=== PATIENT | female | born 1985 | race Caucasian/White ===

== ENCOUNTER → 2017-04-04 | Outpatient (CLI) | payer MEDICAID ==
--- NOTE | 2017-04-04 14:04 | Diagnostic Imaging Report ---
First trimester OB ultrasound. INDICATION: Feeding. FINDINGS: There is a normal-appearing single intrauterine . An embryo is seen with cardiac activity at 122 beats per minute. The crown-rump length is at 6 weeks and 6 days. CATHRYN is 11/22/17. IMPRESSION: Live single intrauterine . Dictated by: Dictated on workstation # [id number]
== END ==
LOC: RAD 13:19
PROVIDERS: ATTEND Family Medicine
DX: O20.9 Hemorrhage in early pregnancy, unspecified; Z3A.01 Less than 8 weeks gestation of pregnancy
CPT/HCPCS: 76801

== ENCOUNTER 2018-05-16 07:53 | Emergency (ER) | payer MEDICAID ==
[~2018-05-16] VITALS: Ht 172.7 cm; Wt 61.2 kg
--- OUTSIDE RECORDS SUMMARY | 2018-05-16 07:57 | XMS REPORT ---
Author Author JACQUELYN FIORE [facility] Address [address] [place] [address] Care Team Providers Care Woods Superintendent Name Role Phone JACQUELYN FIORE Unavailable PROBLEMS Type Condition ICD9-CM Code [id number] Code Onset Dates Condition Status SNOMED Code Problem Cannabis dependence in early, early partial, sustained full, or sustained partial remission F12.21 Active 074344093 Problem PUD (peptic ulcer disease) K27.9 Active 37079184 Problem Gastroesophageal reflux disease with esophagitis K21.0 Active 586229396 Problem GERD with esophagitis K21.0 Active 923110154 ALLERGIES No Information ENCOUNTERS Encounter Location Date Diagnosis [facility] [address] [place] [address] May, [facility] [address] [place] [address] May, [facility] [address] [place] [address] Apr, [facility] [address] [place] [address] Apr, Cannabis dependence in early, early partial, sustained full, or sustained partial remission F12.21 [facility] [address] [place] [address] Apr, Cannabis dependence in early, early partial, sustained full, or sustained partial remission F12.21 [facility] [address] [address] Apr, [facility] [address] [place] [address] Apr, [facility] [address] [address] Apr, [facility] [address] [place] [id number] [address] Oct, [facility] [id number], [place] [address] 02 Oct, 2017 Visit for dental examination Z01.20 [facility] [address] [address] Mar, 7 weeks gestation of Z3A.01 and Bleeding in early O20.9 [facility] [id number] [address] 10 Oct, 2016 PUD (peptic ulcer disease) K27.9 and Gastroesophageal reflux disease with esophagitis K21.0 [facility] [id number] [address] Sep, [facility] [id number], [place] [address] Sep, GERD with esophagitis K21.0 IMMUNIZATIONS No Known Immunizations SOCIAL HISTORY Never Assessed REASON FOR VISIT [facility] PLAN OF CARE Activity Details Follow Up 2 - 3 Days Reason: VITAL SIGNS MEDICATIONS Unknown Medications RESULTS No Results PROCEDURES Procedure Date Ordered Result Body Site Alcohol and/or drug services May 07, 2018 INSTRUCTIONS MEDICATIONS ADMINISTERED No Known Medications MEDICAL (GENERAL) HISTORY Type Description Date Surgical History colonoscopy Surgical History tonsillectomy Surgical History section x2 Surgical History Cervical biopsy 2018 Hospitalization History Surgery(s)/Childbirth(s) only
--- OUTSIDE RECORDS SUMMARY | 2018-05-16 07:57 | XMS REPORT ---
Author Author BELINDA RIVAS [facility] Address [address] [place] [address] Care Team Providers Care Register In Chancery Name Role Phone BELINDA RIVAS Unavailable PROBLEMS Type Condition ICD9-CM Code UIC95-GD Code Onset Dates Condition Status SNOMED Code Problem Gastroesophageal reflux disease with esophagitis K21.0 Active 979494613 Problem PUD (peptic ulcer disease) K27.9 Active 65731447 Problem GERD with esophagitis K21.0 Active 971375219 ALLERGIES No Information SOCIAL HISTORY Never Assessed PLAN OF CARE VITAL SIGNS MEDICATIONS Medication Instructions Dosage Frequency Start Date End Date Duration Status Sucralfate 1 GM Orally 4 times a day 1 tablet 6h 30 days Active RESULTS No Results PROCEDURES No Known procedures IMMUNIZATIONS No Known Immunizations MEDICAL (GENERAL) HISTORY Type Description Date Surgical History colonoscopy Surgical History tonsillectomy Surgical History section x2 Hospitalization History Surgery(s)/Childbirth(s) only
--- OUTSIDE RECORDS SUMMARY | 2018-05-16 07:57 | XMS REPORT ---
Author Author JACQUELYN FIORE [facility] Address [address] [place] [address] Care Team Providers Care Power Cleaner Operator Name Role Phone JACQUELYN FIORE Unavailable PROBLEMS Type Condition ICD9-CM Code QAH66-HL Code Onset Dates Condition Status SNOMED Code Problem Cannabis dependence in early, early partial, sustained full, or sustained partial remission F12.21 Active 451051060 Problem PUD (peptic ulcer disease) K27.9 Active 96235616 Problem Gastroesophageal reflux disease with esophagitis K21.0 Active 205454451 Problem GERD with esophagitis K21.0 Active 223901557 ALLERGIES No Information ENCOUNTERS Encounter Location Date Diagnosis [facility] [address] [place] [address] May, [facility] [address] [place] [address] May, [facility] [address] [place] [address] Apr, [facility] [address] [place] [address] Apr, Cannabis dependence in early, early partial, sustained full, or sustained partial remission F12.21 [facility] [address] [place] [address] Apr, Cannabis dependence in early, early partial, sustained full, or sustained partial remission F12.21 [facility] [address] [address] Apr, [facility] [address] [place] [address] Apr, [facility] [address]65100[place], [place] [address] Apr, [facility] [address] [place], [id number] [place] [address] Oct, [facility] [id number] [place] [address] 02 Oct, 2017 Visit for dental examination Z01.20 [facility] [address], [place] [address] Mar, 7 weeks gestation of Z3A.01 and Bleeding in early O20.9 [facility] [id number] [place] [address] 10 Oct, 2016 PUD (peptic ulcer disease) K27.9 and Gastroesophageal reflux disease with esophagitis K21.0 [facility] [id number] [place] [address] Sep, [facility] [id number] [place] [address] Sep, GERD with esophagitis K21.0 IMMUNIZATIONS No Known Immunizations SOCIAL HISTORY Never Assessed REASON FOR VISIT SUBAB f/u PLAN OF CARE Activity Details Follow Up 1 Week Reason: VITAL SIGNS MEDICATIONS Unknown Medications RESULTS No Results PROCEDURES Procedure Date Ordered Result Body Site Alcohol and/or drug services May 09, 2018 INSTRUCTIONS MEDICATIONS ADMINISTERED No Known Medications MEDICAL (GENERAL) HISTORY Type Description Date Surgical History colonoscopy Surgical History tonsillectomy Surgical History section x2 Surgical History Cervical biopsy 2018 Hospitalization History Surgery(s)/Childbirth(s) only
--- OUTSIDE RECORDS SUMMARY | 2018-05-16 07:57 | XMS REPORT ---
Author Author RHONDA GONZALES [facility] Address [address] [place] [address] Care Team Providers Care Geospatial Imagery Intelligence Analyst Name Role Phone JANET RHONDA Unavailable PROBLEMS Type Condition ICD9-CM Code RAD66-OB Code Onset Dates Condition Status SNOMED Code Problem Cannabis dependence in early, early partial, sustained full, or sustained partial remission F12.21 Active 493996046 Problem PUD (peptic ulcer disease) K27.9 Active 73857105 Problem Gastroesophageal reflux disease with esophagitis K21.0 Active 049736972 Problem GERD with esophagitis K21.0 Active 102101109 ALLERGIES No Information ENCOUNTERS Encounter Location Date Diagnosis [facility] [address] [place] [address] May, [facility] [address] [place] [address] May, [facility] [address] [place] [address] Apr, [facility] [address] [place] [address] Apr, Cannabis dependence in early, early partial, sustained full, or sustained partial remission F12.21 [facility] [address] [place] [address] Apr, Cannabis dependence in early, early partial, sustained full, or sustained partial remission F12.21 [facility] [address], [place] [address] Apr, [facility] [address] [place] [address] Apr, [facility] [address]100[place] [address] Apr, [facility] [address] [id number] [address] Oct, [facility] [address] [id number] [address] 02 Oct, 2017 Visit for dental examination Z01.20 [facility] [address] [id number] [address] Mar, 7 weeks gestation of Z3A.01 and Bleeding in early O20.9 [facility] [id number], [place] [address] 10 Oct, 2016 PUD (peptic ulcer disease) K27.9 and Gastroesophageal reflux disease with esophagitis K21.0 [facility] [id number], [place] [address] Sep, [facility] [id number], [place] [address] Sep, GERD with esophagitis K21.0 IMMUNIZATIONS No Known Immunizations SOCIAL HISTORY Never Assessed REASON FOR VISIT medication question PLAN OF CARE VITAL SIGNS MEDICATIONS Unknown Medications RESULTS No Results PROCEDURES No Known procedures INSTRUCTIONS MEDICATIONS ADMINISTERED No Known Medications MEDICAL (GENERAL) HISTORY Type Description Date Surgical History colonoscopy Surgical History tonsillectomy Surgical History section x2 Surgical History Cervical biopsy 2018 Hospitalization History Surgery(s)/Childbirth(s) only
--- OUTSIDE RECORDS SUMMARY | 2018-05-16 07:57 | XMS REPORT ---
Author Author RHONDA GONZALES [facility] Address [address] [place] [address] Care Team Providers Care Instrument Shop Supervisor Name Role Phone JANET RHONDA Unavailable PROBLEMS Type Condition ICD9-CM Code FIF67-OI Code Onset Dates Condition Status SNOMED Code Problem Cannabis dependence in early, early partial, sustained full, or sustained partial remission F12.21 Active 393334890 Problem PUD (peptic ulcer disease) K27.9 Active 53306439 Problem Gastroesophageal reflux disease with esophagitis K21.0 Active 837477929 Problem GERD with esophagitis K21.0 Active 185733845 ALLERGIES No Information ENCOUNTERS Encounter Location Date Diagnosis [facility] [address] [place] [address] May, [facility] [address] [place] [address] May, [facility] [address] [place] [address] Apr, [facility] [address] [place] [address] Apr, Cannabis dependence in early, early partial, sustained full, or sustained partial remission F12.21 [facility] [address] [place] [address] Apr, Cannabis dependence in early, early partial, sustained full, or sustained partial remission F12.21 [facility] [address] [address] Apr, [facility] [address] [place] [address] Apr, [facility] [address] [address] Apr, [facility] [address] [id number], [place] [address] Oct, [facility] [address] [id number], [place] [address] 02 Oct, 2017 Visit for dental examination Z01.20 [facility] [address] [id number] [address] Mar, 7 weeks gestation of Z3A.01 and Bleeding in early O20.9 [facility] [id number], [place] [address] 10 Oct, 2016 PUD (peptic ulcer disease) K27.9 and Gastroesophageal reflux disease with esophagitis K21.0 [facility] [id number], [place] [address] Sep, [facility] [id number], [place] [address] Sep, GERD with esophagitis K21.0 IMMUNIZATIONS No Known Immunizations SOCIAL HISTORY Never Assessed REASON FOR VISIT Colposcopy PLAN OF CARE VITAL SIGNS MEDICATIONS Unknown Medications RESULTS No Results PROCEDURES No Known procedures INSTRUCTIONS MEDICATIONS ADMINISTERED No Known Medications MEDICAL (GENERAL) HISTORY Type Description Date Surgical History colonoscopy Surgical History tonsillectomy Surgical History section x2 Surgical History Cervical biopsy 2018 Hospitalization History Surgery(s)/Childbirth(s) only
--- OUTSIDE RECORDS SUMMARY | 2018-05-16 07:57 | XMS REPORT ---
Author Author JENELLE ORTEZ Organization [facility] Address Unknown Phone Unavailable Care Team Providers Care Sausage Wrapper Name Role Phone JENELLE ORTEZ Unavailable Unavailable PROBLEMS Type Condition ICD9-CM Code AEB26-XW Code Onset Dates Condition Status SNOMED Code Problem Gastroesophageal reflux disease with esophagitis K21.0 Active 093404625 Problem PUD (peptic ulcer disease) K27.9 Active 06839253 Problem GERD with esophagitis K21.0 Active 929123378 ALLERGIES Substance Reaction Event Type Date Status Doxycycline Hyclate nausea and vomiting Drug Allergy Oct, Active ENCOUNTERS Encounter Location Date Diagnosis [facility] [address] [place] [address] Oct, [facility] [address] [place] [address] Oct, Visit for dental examination Z01.20 [facility] [address] [address] Mar, 7 weeks gestation of Z3A.01 and Bleeding in early O20.9 [facility] [address] [place] [id number] [place] [address] Oct, PUD (peptic ulcer disease) K27.9 and Gastroesophageal reflux disease with esophagitis K21.0 [facility] [address] [place], [place] [id number] [place] [address] Sep, [facility] [address] [place] [address] Sep, GERD with esophagitis K21.0 IMMUNIZATIONS No Known Immunizations SOCIAL HISTORY Never Assessed REASON FOR VISIT LU[facility] E PLAN OF CARE Activity Details Follow Up Full mouth TE 1 hr. Reason: VITAL SIGNS Blood pressure systolic 112 mmHg 2017-10-14 Blood pressure diastolic 76 mmHg 2017-10-14 MEDICATIONS Medication Instructions Dosage Frequency Start Date End Date Duration Status Vitamin 27-0.8 MG Not-Taking Plus 27-1 MG Orally Once a day as directed 24h Mar, Active [place] Active Sucralfate 1 GM Orally 4 times a day 1 tablet 6h 30 days Not-Taking RESULTS No Results PROCEDURES Procedure Date Ordered Result Body Site COMP ORAL EVALUATION - NEW/EST PT October 14, 2017 INTRAORL - CMPL SERIES CODE 25730 October 14, 2017 INSTRUCTIONS MEDICATIONS ADMINISTERED No Known Medications MEDICAL (GENERAL) HISTORY Type Description Date Surgical History colonoscopy Surgical History tonsillectomy Surgical History section x2 Surgical History Cervical biopsy 2018 Hospitalization History Surgery(s)/Childbirth(s) only
--- OUTSIDE RECORDS SUMMARY | 2018-05-16 07:57 | XMS REPORT | Continuity of Care Document ---
Author Author [facility] Organization [facility] Address [facility] [address] [place] [address] Phone Unavailable Support Name Relationship Address Phone Bishnu Molina M.D. Caregiver [address] [place] [address] JOHN RAJANSS Next Of Kin [address] [place] [address] Insurance Providers Payer Name Policy Number Subscriber Name Relationship [facility] [id number] Kenisha Santiago 20 Self / Same As Patient Advance Directives Directive Response Recorded Date/Time Do you have an Advanced Directive? No 05/06/00 8:18pm Advance Directives No 11/26/14 11:30am Living Will No 11/26/14 11:30am Health Care Proxy No 11/26/14 11:30am Power of Fare Enforcement Officer for Health Care No 11/26/14 11:30am Organ, Tissue, or Eye Donor No 11/26/14 11:30am Do you have a signed organ donor card? No 05/06/00 8:18pm Problems No known problems or medical conditions. Medications Medication Dose Route Sig Days/Qty Instructions Order Date Discontinued Date Status Propoxyphene/Acetaminophen 1 Tab PO 3-4 TIMES DAILY NEEDED 20 Qty 03/28/12 Discontinued Vit#96/Ferrous Fum/Fa* 1 Each PO DAILY 03/28/12 12/01/13 Discontinued Benzocaine/Menthol 82.5 Ml TP NEEDED 03/30/12 05/28/13 Discontinued Acetaminophen/Hydrocodone Bitart 1 Tab PO EVERY 6 HRS NEEDED FOR PAIN 16 Qty 03/30/12 05/28/13 Discontinued Lanolin 454 Gm TP NEEDED 03/30/12 05/28/13 Discontinued Acetaminophen/Hydrocodone Bitart 1 Ea PO EVERY 6 HRS NEEDED FOR PAIN 20 Qty 05/31/13 12/01/13 Discontinued Lanolin 56 Gm TP 05/31/13 12/01/13 Discontinued Acetaminophen/Aspirin/Caffeine 1 Each PO PRN HEADACHE 12/01/1311/24 Discontinued Acetaminophen 325 Mg PO PRN HEADACHE 12/01/13 Active Ranitidine HCl 15 Mg PO DAILY 11/26/14 Active Acetaminophen/Hydrocodone Bitart (Lortab 7.5-325 Tab*) 1 Each PO EVERY 4 HRS NEEDED PAIN For PAIN 15 Qty 11/28/14 Active Social History Social History Problem Response Recorded Date/Time Smoking Status Current every day smoker 11/26/2014 11:30am Tobacco Use Cigarettes 05/29/2013 7:51am Alcohol Use occasionally 11/25/2014 9:57am Drug Use none 11/25/2014 9:57am Sexual History Heterosexual 05/29/2013 7:51am Query Response Start Date Stop Date Smoking Status Current every day smoker Hospital Discharge Instructions Discharge Instructions Provider Instructions # of Weeks Gestation: 40 OB-Reason for Admission/Chief: Repeat Section Nursing Instructions Flu Vaccine Received this Visit: No Pneumonia Vaccine Received this Visit: No Education #1 Topic: BREAST CARE, , DEPRESSION Methods: Discussion, Handout Printed Material Provided: YES Response: Verbalize understanding Recipient: Patient Note: -CALL DR IF YOU HAVE PAIN THATS ABNORMAL OR BLEEDING (MORE THAN A PAD AN HR) THATS ABNORMAL.. -CALL DR CLINIC FOR APPT INSTRUCTED NEXT WEEK ON 11/30/14 -CHECK YOUR TEMPERATURE 2 TIMES A DAY FOR A WEEK AND CALL DR IF 100.5 OR GREATER. -STAPLE REMOVAL TO BE DONE IN DR OFFICE. -REPLACE STERI STRIPS IF THEY COME OFF. REMOVE STERI STRIPS IN 10-14 DAYS. -CALL DR IF INCISION BECOMES RED, HOT, DRAINING, OR GAPPING OPEN. Patient specific education materials provided?: Yes Patient Request Electronic Discharge Instructions: No Patient Received Electronic Discharge Instructions: No Patient Health Summary printed/downloaded for the patient?: Yes Valuables Returned: Yes Medications Returned: No Comment: NONE TAKEN FROM PT Plan of Care Discharge Date 11/28/14 2:15pm Disposition 01 HOME, SKILLED NURSING,ASSISTED LIVING Instructions/Education Provided Section (DC) Depression (GEN) Your Baby (DC) and Nipple Soreness (DC) Breast Care for the Breast Feeding Mother (DC) Prescriptions See Medications Section Functional Status No functional status results. Allergies, Adverse Reactions, Alerts Allergen Type Severity Reaction Status Last Updated Doxycycline Allergy Unknown NAUSEA Active 11/30/13 Promethazine Allergy Unknown NAUSEA Active 11/30/13 Immunizations Name Given Type Hx Diphtheria, Pertussis, Tetanus Vaccination Unknown Historical Hx Influenza Vaccination No Historical Hx Pneumococcal Vaccination No Historical Vital Signs Acute Vital Signs Vital Response Date/Time Temperature (Fahrenheit) 97.8 degrees F (97.6 - 99.5) Temperature Source Temporal Artery Pulse Rate (adult) 77 bpm (60 - 90) Respiratory Rate 18 bpm (12 - 24) Blood Pressure 102/54 mm Hg O2 Sat by Pulse Oximetry 98 % (90 - 100) Oxygen Flow Rate 2 L/min Pain Intensity 10 Pain Location Body Site Modifier Pain Description Cramping Height 5 ft 8 in Weight 177 lb Body Mass Index 26.9 kg/m^2 Results Test Source Date Result Interp. Ref. Range Comments Alanine Aminotransferase (ALT/SGPT) 2013 11:19pm 22 U/L N 12-78 Albumin 2013 11:19pm 4.5 gm/dL N 3.4-5.0 Amylase Level 2013 11:19pm 80 U/L N 25-115 Aspartate Amino Transf (AST/SGOT) 2013 11:19pm 16 U/L N 15-37 Band Neutrophils June 04, 2003 9:24am 2.0 % N 0-[address] RODRIGUEZ [phone] Barbiturates 2013 11:19pm Negative - Basophils # (Auto) 2014 6:45am 0.0 K/uL N 0.0-0.2 Specimen Comments: 1ST AND 3RD DAY POST OP Basophils (%) (Auto) 2014 6:45am 0.3 % N 0.0-1.0 Specimen Comments: 1ST AND 3RD DAY POST OP Blood Urea Nitrogen 2013 11:19pm 9 mg/dL N 7-18 Calcium Level 2013 11:19pm 8.7 mg/dL L 8.8-10.5 Carbon Dioxide Level 2013 11:19pm 27.8 mEq/L N 21-32 Chloride Level 2013 11:19pm 101 mEq/L N 98-107 Creatinine 2013 11:19pm 0.8 mg/dL N 0.6-1.0 Eosinophils # (Auto) 2014 6:45am 0.1 K/uL N 0.0-0.7 Specimen Comments: 1ST AND 3RD DAY POST OP Eosinophils (%) (Auto) 2014 6:45am 1.8 % N 0-3 Specimen Comments: 1ST AND 3RD DAY POST OP Eosinophils (Manual) May 06, 2000 8:45pm 8.0 % H 0-3 Fasting Glucose January 08, 2012 2:39pm 89 MG/DL N 70-110 Glomerular Filtration Rate Calc 2013 11:19pm 92.2 mL/min N 60.0- 128.0 Glucose 1 Hour January 08, 2012 2:39pm 88 MG/DL L 120-170 Group B Streptococcus DNA Probe October 18, 2014 12:00am Negative - Hematocrit 2014 6:45am 28.2 % L 37.0-47.0 Specimen Comments: 1ST AND 3RD DAY POST OP Hemoglobin 2014 6:45am 8.2 gm/dL L 12.0-16.0 Specimen Comments : 1ST AND 3RD DAY POST OP Lipase 2013 11:19pm 81 U/L N 65-230 Lymphocytes # (Auto) 2014 6:45am 1.7 K/uL N 1.2-3.4 Specimen Comments: 1ST AND 3RD DAY POST OP Lymphocytes (%) (Auto) 2014 6:45am 23.7 % N 20.5-51.1 Specimen Comments: 1ST AND 3RD DAY POST OP Lymphocytes (Manual) June 04, 2003 9:24am 12.0 % L 25-[address] RODRIGUEZ [phone] Magnesium Level 2013 11:19pm 1.8 mg/dL N 1.8-2.4 Mean Corpuscular Hemoglobin 2014 6:45am 23.4 pg L 27.0-31.0 Specimen Comments: 1ST AND 3RD DAY POST OP Mean Corpuscular Hemoglobin Concent 2014 6:45am 29.1 g/dL L 30.0 -37.0 Specimen Comments: 1ST AND 3RD DAY POST OP Mean Corpuscular Volume 2014 6:45am 80.9 fL L 81.0-99.0 Specimen Comments: 1ST AND 3RD DAY POST OP Mean Platelet Volume 2014 6:45am 9.0 fL N 7.4-10.4 Specimen Comments: 1ST AND 3RD DAY POST OP Monocytes # (Auto) 2014 6:45am 0.3 K/uL N 0.1-0.6 Specimen Comments: 1ST AND 3RD DAY POST OP Monocytes (%) (Auto) 2014 6:45am 4.5 % N 1.7-9.3 Specimen Comments: 1ST AND 3RD DAY POST OP Monocytes (Manual) June 04, 2003 9:24am 10.0 % N 4-[address] RODRIGUEZ [phone] Neutrophils June 04, 2003 9:24am 76.0 % H 50-[address] RODRIGUEZ [phone] Neutrophils # (Auto) 2014 6:45am 4.9 K/uL N 2.0-6.9 Specimen Comments: 1ST AND 3RD DAY POST OP Neutrophils (%) (Auto) 2014 6:45am 69.8 % N 42.2-75.2 Specimen Comments: 1ST AND 3RD DAY POST OP Phencyclidine (PCP) Screen 2013 11:19pm Negative - Platelet Count 2014 6:45am 246 K/uL N 130-400 Specimen Comments : 1ST AND 3RD DAY POST OP Potassium Level 2013 11:19pm 3.1 mEq/L L 3.5-5.0 Random Glucose 2013 11:19pm 136 mg/dL H 70-110 Red Blood Count 2014 6:45am 3.49 M/uL L 4.20-5.40 Specimen Comments: 1ST AND 3RD DAY POST OP Red Cell Distribution Width 2014 6:45am 14.7 % H 11.5-14.5 Specimen Comments: 1ST AND 3RD DAY POST OP Sodium Level 2013 11:19pm 137 mEq/L N 136-145 Total Alkaline Phosphatase 2013 11:19pm 82 U/L N 50-136 Total Bilirubin 2013 11:19pm 0.30 mg/dL N 0.00-1.00 Total Protein 2013 11:19pm 8.3 gm/dL H 6.4-8.2 Tricyclic Antidepressants 2013 11:19pm Negative - Urine Amphetamines Screen 2013 11:19pm - Urine Appearance November 26, 2014 10:30am Clear - Specimen already obtained? YUrine obtained via URINE,CATHETER Urine Bacteria November 26, 2014 10:30am 1+ H - Specimen already obtained? YUrine obtained via URINE,CATHETER Urine Barbiturates Screen 2013 11:19pm Negative ng/mL - Urine Benzodiazepines Screen 2013 11:19pm Negative ng/mL - Urine Bilirubin November 26, 2014 10:30am 1+ (small) H - Specimen already obtained? YUrine obtained via URINE,CATHETER Urine Cocaine Level 2013 11:19pm Negative - Urine Cocaine Screen 2013 11:19pm Negative ng/mL - Urine Color November 26, 2014 10:30am Dark yellow - Specimen already obtained? YUrine obtained via URINE,CATHETER Urine Glucose (UA) November 26, 2014 10:30am Negative mg/dL - Specimen already obtained? YUrine obtained via URINE,CATHETER Urine HCG, Qualitative December 01, 2013 7:03am Negative - Specimen Comments: PREOP 1DS Urine Ictotest May 21, 2006 12:00am Negative - Urine Ketones November 26, 2014 10:30am Trace mg/dL H - Specimen already obtained? YUrine obtained via URINE,CATHETER Urine Leukocyte Esterase November 26, 2014 10:30am Negative - Specimen already obtained? YUrine obtained via URINE,CATHETER Urine Marijuana (THC) Screen 2013 11:19pm Positive - Urine Methamphetamines Screen 2013 11:19pm Positive - Urine Mucus November 26, 2014 10:30am Moderate H - Specimen already obtained ? YUrine obtained via URINE,CATHETER Urine Nitrate November 26, 2014 10:30am Negative - Specimen already obtained? YUrine obtained via URINE,CATHETER Urine Occult Blood November 26, 2014 10:30am Negative - Specimen already obtained? YUrine obtained via URINE,CATHETER Urine Opiates Screen 2013 11:19pm Negative ng/mL - Opiate test includes Codeine and Morphine only. Urine Phencyclidine Screen 2013 11:19pm Negative ng/mL - Performed at: - [facility] [id number] Horseback Riding Instructor: Kendal Gomez MD, Phone: [phone] Urine Protein November 26, 2014 10:30am 1+ (30 mg/dl) mg/dL H - Specimen already obtained? YUrine obtained via URINE,CATHETER Urine RBC November 26, 2014 10:30am 1-2 /hpf H - Specimen already obtained? YUrine obtained via URINE,CATHETER Urine Specific [place] November 26, 2014 10:30am 1.020 N 1.010-1.025 Specimen already obtained? YUrine obtained via URINE,CATHETER Urine Squamous Epithelial Cells November 26, 2014 10:30am Too numerous to cnt. /hpf H - Specimen already obtained? YUrine obtained via URINE,CATHETER Urine Urobilinogen November 26, 2014 10:30am 1.0 mg/dl E.U./dL - Specimen already obtained? YUrine obtained via URINE,CATHETER Urine WBC November 26, 2014 10:30am 1-2 /hpf - Specimen already obtained? YUrine obtained via URINE,CATHETER Urine pH November 26, 2014 10:30am 7.0 - Specimen already obtained? YUrine obtained via URINE,CATHETER White Blood Count 2014 6:45am 7.1 K/uL N 4.8-10.8 Specimen Comments: 1ST AND 3RD DAY POST OP Blood Culture Blood 2013 11:19pm NO GROWTH AFTER 5 DAYS Gram Stain Cervix February 15, 2012 3:35pm Urine Culture Urine,Catheterized November 26, 2014 10:30am NO GROWTH AFTER 48 HOURS Procedures Procedure Status Date Provider(s) Repeat section completed 11/26/14 Bishnu Molina M.D. Encounters Encounter Location Date/Time Discharged Inpatient [facility] 11/26/14 5:45am Registered Clinic [facility] 11/25/14 12:08pm
--- OUTSIDE RECORDS SUMMARY | 2018-05-16 07:57 | XMS REPORT ---
Author Author LASHONDA DARLING Organization [facility] Address [address] [place] [address] Care Team Providers Care Income Tax Preparer Name Role Phone LASHONDA DARLING Unavailable PROBLEMS Type Condition ICD9-CM Code [id number] Code Onset Dates Condition Status SNOMED Code Problem Gastroesophageal reflux disease with esophagitis K21.0 Active 782695462 Problem PUD (peptic ulcer disease) K27.9 Active 60776019 Problem GERD with esophagitis K21.0 Active [id number] ALLERGIES Substance Reaction Event Type Date Status Doxycycline Hyclate nausea and vomiting Drug Allergy Mar, Active ENCOUNTERS Encounter Location Date Diagnosis [facility] [address] [place] [phone] Oct, [facility] [address] [place], [place] [id number] [place] [phone] Oct, Visit for dental examination Z01.20 [facility] [id number] [place] [phone] Mar, 7 weeks gestation of Z3A.01 and Bleeding in early O20.9 [facility] [address] [place], [place] [id number] [place] [phone] Oct, PUD (peptic ulcer disease) K27.9 and Gastroesophageal reflux disease with esophagitis K21.0 [facility] [address] [place] [phone] Sep, [facility] [address] [place] [phone] Sep, GERD with esophagitis K21.0 IMMUNIZATIONS No Known Immunizations SOCIAL HISTORY Never Assessed REASON FOR VISIT 7W preg and spotting--tcuppettRN, -Spotted x 1 week last week without any cramping. Spotting stopped 3 days ago. Was seen at a clinic in [place]. Had an US done there. Was told to fu in 1 week. PLAN OF CARE Activity Details Follow Up 1 Week if US abnormal Reason: VITAL SIGNS Height 67 in 2017-04-04 Weight 120.9 lbs 2017-04-04 Temperature 98.0 degrees Fahrenheit 2017-04-04 Heart Rate 70 bpm 2017-04-04 Respiratory Rate 18 2017-04-04 BMI 18.93 kg/m2 2017-04-04 Blood pressure systolic 98 mmHg 2017-04-04 Blood pressure diastolic 60 mmHg 2017-04-04 MEDICATIONS Medication Instructions Dosage Frequency Start Date End Date Duration Status Plus 27-1 MG Orally Once a day as directed 24h Mar, Active Vitamin 27-0.8 MG Not-Taking Sucralfate 1 GM Orally 4 times a day 1 tablet 6h 30 days Not-Taking RESULTS Name Result Date Reference Range TEST, URINE (IN HOUSE) 2017-04-04 RESULTS Positive Lot # [id number] Control + Exp date 08/14/18 Ultrasound : OB, Early <14 WEEKS 2017-04-04 PROCEDURES Procedure Date Ordered Result Body Site URINE TEST Apr 04, 2017 INSTRUCTIONS MEDICATIONS ADMINISTERED No Known Medications MEDICAL (GENERAL) HISTORY Type Description Date Surgical History colonoscopy Surgical History tonsillectomy Surgical History section x2 Surgical History Cervical biopsy 2018 Hospitalization History Surgery(s)/Childbirth(s) only
--- OUTSIDE RECORDS SUMMARY | 2018-05-16 07:57 | XMS REPORT | Continuity of Care Document ---
Author Author [facility] Organization [facility] Address [facility] [address] [place] [address] Phone Unavailable Support Name Relationship Address Phone Bishnu Molina M.D. Caregiver [address] [place] [address] Bishnu Molina M.D. Caregiver [address] [place] [address] Bishnu Molina M.D. Caregiver [address] [place] [address] CALLY RAJAN Next Of Kin [address] [place] [address] Insurance Providers Guarantor Kenisha Santiago Address [address] [place] [address] [facility] Policy Number [id number] Subscriber's Name JackKneisha G Relationship 18 Self / Same As Patient Advance Directives Directive Response Recorded Date/Time Do you have an Advanced Directive? No 05/06/00 8:18pm Advance Directives No 08/08/17 4:29pm Living Will No 08/08/17 4:29pm Health Care Proxy No 08/08/17 4:29pm Power of Site Safety Manager for Health Care No 08/08/17 4:29pm Organ, Tissue, or Eye Donor No 08/08/17 4:29pm Do you have a signed organ donor card? No 05/06/00 8:18pm Problems Active ProblemsNo active problem information available. Past Problems Medical Problem Onset Date Status Dehydration Unknown Acute Unknown Acute Systemic viral illness Unknown Acute Medications Current Home Medications Medication Dose Units Route Directions Days Qty Instructions Start Date Azithromycin 1 Gm Packet 250 Mg ORAL Daily Take two tablets (500mg) by mouth daily Benzonatate (Tessalon Perles*) 100 Mg Cap 100 Mg ORAL Every 8 Hours As Needed as needed for Cough And Congestion as needed for cough. Hydrocodone/Acetaminophen (Hydrocodone-Acetamin 5-325 Mg) 1 Each Tablet 1 Tab ORAL Every 6 Hrs As Needed For Pain as needed for Pain Loratadine (Claritin 10 Mg Tab*) 10 Mg Tablet 10 Mg ORAL Daily Montelukast Sodium (Singulair 10 Mg Tab*) 10 Mg Tablet 10 Mg ORAL Daily Prednisone (Prednisone 10 Mg Tab*) 10 Mg Tablet 10 Mg ORAL Daily Past Home Medications Medication Directions Ordered Status Acetaminophen (Tylenol 325 Mg Tab*) 325 Mg Tablet, 325 Mg Oral as needed for Headache Discontinued Acetaminophen/Aspirin/Caffeine (Excedrin Caplet) 1 Each Tablet, 1 Each Oral As Needed Discontinued Acetaminophen/Aspirin/Caffeine (Excedrin Caplet) 1 Each Tablet, 1 Each Oral as needed for Headache Discontinued Acetaminophen/Hydrocodone Bitart (Norris 7.5-325 Tab*) 1 Tab Tablet, 1 Each Oral Every 4 Hrs As Needed Pain for Pain 11/28/14 Discontinued Acetaminophen/Hydrocodone Bitart (Lortab 7.5-500 Tab*) 1 Tab Tablet, 1 Ea Oral Every 6 Hrs As Needed For Pain Discontinued Acetaminophen/Hydrocodone Bitart (Lortab 7.5-500 Tab*) 1 Tab Tablet, 1 Tab Oral Every 6 Hrs As Needed For Pain Discontinued Aspirin , Unknown Dose Oral As Needed Discontinued Benzocaine/Menthol (Dermoplast Pruden) 82.5 Ml Aerosol, 82.5 Ml Topical As Needed Discontinued Flu Relief Tab , 1 Tab Oral Omaxz0uzxoh Prn Discontinued Hydrocodone/Acetaminophen (Norris 5-325 Tablet) 1 Each Tablet, 0.25-1 Tab Oral As Needed Discontinued Ibuprofen , Unknown Dose Oral As Needed Discontinued Lanolin (Lanolin*) 56 Gm Cream.gm., 56 Gm Topical Discontinued Lanolin (Lanolin*) 454 Gm Oint...g., 454 Gm Topical As Needed Discontinued Ondansetron (Zofran Odt) 4 Mg Tab.rapdis, 1 Tab Sublingual Every 6 Hours As Needed as needed for Nausea 08/03/17 Discontinued Vit#96/Ferrous Fum/Fa* ( Tablet*) 1 Each Tablet, 1 Each Oral Daily Discontinued Propoxyphene/Acetaminophen (Darvocet-N 100 Tablet) 1 Tab Tablet, 1 Tab Oral 3- 4 Times Daily As Needed 08/27/08 Discontinued Ranitidine Hcl (Zantac*) 15 Mg/Ml Syrup, 15 Mg Oral Daily Discontinued Sucralfate (Carafate*) 1 G Tablet, 1 Gm Oral Four Times Daily Discontinued Social History Social History Problem Response Recorded Date/Time Onset Date Status Smoking Status Current every day smoker 08/08/2017 4:29pm Not Applicable Not Applicable Tobacco Use Cigarettes 05/29/2013 7:51am Not Applicable Not Applicable Sexual History Heterosexual 05/29/2013 7:51am Not Applicable Not Applicable Smoking Status Start Date Stop Date Current every day smoker Hospital Discharge Instructions No hospital discharge instruction information available. Plan of Care Discharge Date 08/09/17 10:20pm Disposition 01 HOME, SENIOR CARE,ASSISTED LIVING Instructions/Education Provided Bacterial Pneumonia (DC) Prescriptions See Medication Section Functional Status Query Response Date Recorded Cooper Coma Scale Total 15 August 09, 2017 8:00am Patient Behavior Cooperative Crying August 09, 2017 8:00am Allergies, Adverse Reactions, Alerts Allergen Type Severity Reaction Status Last Updated Doxycycline Allergy Unknown NAUSEA Active 08/03/17 Promethazine Allergy Unknown NAUSEA Active 08/03/17 Immunizations Query Response on File Recorded Date/Time Hx Diphtheria, Pertussis, Tetanus Vaccination Unknown 08/03/17 2:07pm Hx Influenza Vaccination N - REFUSES 08/08/17 4:29pm Hx Pneumococcal Vaccination No 08/08/17 4:29pm Vital Signs Acute Vital Signs Vital Response Date/Time Temperature (Fahrenheit) 98.1 degrees F (97.6 - 99.5) 08/09/2017 9:22pm Temperature Source Temporal Artery 08/09/2017 9:22pm Pulse Rate (adult) 97 bpm (60 - 90) 08/09/2017 9:22pm Respiratory Rate 16 bpm (12 - 24) 08/09/2017 9:22pm Blood Pressure 101/62 mm Hg 08/09/2017 9:22pm O2 Sat by Pulse Oximetry 97 % (90 - 100) 08/09/2017 9:22pm Oxygen Delivery Method Room Air 08/03/2017 7:59pm Pain Intensity 7 08/08/2017 7:11pm Pain Description Aching 08/08/2017 4:29pm Height 5 ft 9 in 08/08/2017 3:08pm Weight 138.89 lb 08/08/2017 3:08pm Body Mass Index 20.0 kg/m^2 08/08/2017 3:08pm Results Laboratory Results Test Name Result Units Flags Reference Collection Date/Time Result Date/ Time Comments White Blood Count 11.1 K/uL H 4.8-10.8 08/08/2017 3:11pm 08/08/2017 3: 35pm Red Blood Count 3.92 M/uL L 4.20-5.40 08/08/2017 3:11pm 08/08/2017 3: 35pm Hemoglobin 10.9 gm/dL L 12.0-16.0 08/08/2017 3:11pm 08/08/2017 3:35pm Hematocrit 32.9 % L 37.0-47.0 08/08/2017 3:11pm 08/08/2017 3:35pm Mean Corpuscular Volume 84.0 fL 81.0-99.0 08/08/2017 3:11pm 08/08/2017 3:35pm Mean Corpuscular Hemoglobin 27.8 pg 27.0-31.0 08/08/2017 3:11pm 2017 3:35pm Mean Corpuscular Hemoglobin Concent 33.3 g/dL 30.0-37.0 08/08/2017 3: 11pm 08/08/2017 3:35pm Red Cell Distribution Width 14.8 % H 11.5-14.5 08/08/2017 3:11pm 2017 3:35pm Platelet Count 413 K/uL H 130-400 08/08/2017 3:11pm 08/08/2017 3:35pm Mean Platelet Volume 7.7 fL 7.4-10.4 08/08/2017 3:11pm 08/08/2017 3: 35pm Neutrophils (%) (Auto) 88.4 % H 42.2-75.2 08/08/2017 3:11pm 08/08/2017 3 :35pm Lymphocytes (%) (Auto) 7.5 % L 20.5-51.1 08/08/2017 3:11pm 08/08/2017 3: 35pm Monocytes (%) (Auto) 3.6 % 0-10 08/08/2017 3:11pm 08/08/2017 3:35pm Eosinophils (%) (Auto) 0.4 % 0-3 08/08/2017 3:11pm 08/08/2017 3:35pm Basophils (%) (Auto) 0.2 % 0.0-1.0 08/08/2017 3:11pm 08/08/2017 3:35pm Neutrophils # (Auto) 9.8 K/uL H 2.0-6.9 08/08/2017 3:11pm 08/08/2017 3: 35pm Lymphocytes # (Auto) 0.8 K/uL L 1.2-3.4 08/08/2017 3:11pm 08/08/2017 3: 35pm Monocytes # (Auto) 0.4 K/uL 0.1-0.6 08/08/2017 3:11pm 08/08/2017 3: 35pm Eosinophils # (Auto) 0.0 K/uL 0.0-0.7 08/08/2017 3:11pm 08/08/2017 3: 35pm Basophils # (Auto) 0.0 K/uL 0.0-0.2 08/08/2017 3:11pm 08/08/2017 3: 35pm Urine Color DARK YELLOW YELLOW 08/08/2017 3:10pm 08/08/2017 3:32pm Urine Appearance CLEAR CLEAR 08/08/2017 3:10pm 08/08/2017 3:32pm Urine Glucose (UA) NEGATIVE mg/dL NEGATIVE 08/08/2017 3:10pm 2017 3:32pm Urine Bilirubin NEGATIVE NEGATIVE 08/08/2017 3:10pm 08/08/2017 3: 32pm Urine Ketones TRACE mg/dL H NEGATIVE 08/08/2017 3:10pm 08/08/2017 3: 32pm Urine Specific [place] 1.015 1.010-1.025 08/08/2017 3:10pm 2017 3:32pm Urine Occult Blood NEGATIVE NEGATIVE 08/08/2017 3:1008/08/2017 3: 32pm Urine pH 7.5 5.0-8.0 08/08/2017 3:10pm 08/08/2017 3:32pm Urine Protein TRACE mg/dL H NEGATIVE 08/08/2017 3:10pm 08/08/2017 3: 32pm Urine Urobilinogen >=8.0 E.U./dL 0.2-1.0 08/08/2017 3:10pm 08/08/2017 3 :32pm Urine Nitrate NEGATIVE NEGATIVE 08/08/2017 3:10pm 08/08/2017 3:32pm Urine Leukocyte Esterase NEGATIVE NEGATIVE 08/08/2017 3:10pm 2017 3:32pm Urine RBC NEGATIVE /hpf 0 08/08/2017 3:10pm 08/08/2017 3:39pm Urine WBC NEGATIVE /hpf 0-4 08/08/2017 3:10pm 08/08/2017 3:39pm Urine Squamous Epithelial Cells 10-15 /hpf 0-1 08/08/2017 3:10pm 2017 3:39pm Urine Bacteria TRACE NEGATIVE 08/08/2017 3:10pm 08/08/2017 3:39pm Influenza Type A (Rapid) NEGATIVE 08/08/2017 3:10pm 08/08/2017 4: 18pm Influenza Type B (Rapid) NEGATIVE 08/08/2017 3:10pm 08/08/2017 4: 18pm Microbiology Results Procedure Source Organism/Result Collection Date/Time Result Date/Time Result Status Blood Culture Blood NO GROWTH AFTER 1 DAY 08/08/2017 3:40pm 08/09/2017 3: 51pm Preliminary Procedures Procedure Status Date Provider(s) Limited obstetrical ultrasound Completed 08/03/17 LEILANI JAMES MD Portable x-ray of chest Completed 08/03/17 LEILANI JAMES MD X-ray of chest, PA and lateral views Completed 08/09/17 Bishnu Molina M.D. Encounters Encounter Location Arrival/Admit Date Discharge/Depart Date Attending Provider Discharged Inpatient (obs) [place] 08/08/17 2:37pm 08/09/17 10:20pm Bishnu Molina M.D. Departed Emergency Room [place] 08/03/17 1:57pm 08/03/17 8:15pm LEILANI JAMES MD
--- OUTSIDE RECORDS SUMMARY | 2018-05-16 07:57 | XMS REPORT ---
Author Author VINH MAGALLANES Organization [facility] Address [address] [place] [address] Care Team Providers Care Package Liner Name Role Phone VINH MAGALLANES Unavailable PROBLEMS Type Condition ICD9-CM Code [id number] Code Onset Dates Condition Status SNOMED Code Problem Gastroesophageal reflux disease with esophagitis K21.0 Active 537524515 Problem PUD (peptic ulcer disease) K27.9 Active 02688927 Problem GERD with esophagitis K21.0 Active 029848085 ALLERGIES No Information ENCOUNTERS Encounter Location Date Diagnosis [facility] [address] [place], [place] [id number] [place] [phone] Oct, [facility] [address] [place], [place] [id number] [place] [phone] Oct, Visit for dental examination Z01.20 [facility] [id number] [place] [phone] 21 Mar, 2017 7 weeks gestation of Z3A.01 and Bleeding in early O20.9 [facility] [address] [place], [place] [id number] [place] [phone] Oct, PUD (peptic ulcer disease) K27.9 and Gastroesophageal reflux disease with esophagitis K21.0 [facility] [address] [place] [id number] [place] [phone] Sep, [facility] [address] [place] [id number] [place] [phone] Sep, GERD with esophagitis K21.0 IMMUNIZATIONS No Known Immunizations SOCIAL HISTORY Never Assessed REASON FOR VISIT Antibiotics PLAN OF CARE VITAL SIGNS MEDICATIONS Medication Instructions Dosage Frequency Start Date End Date Duration Status Amoxicillin 500 MG Orally with food every 8 hrs 1 capsule 8h 10 day(s ) Active RESULTS No Results PROCEDURES No Known procedures INSTRUCTIONS MEDICATIONS ADMINISTERED No Known Medications MEDICAL (GENERAL) HISTORY Type Description Date Surgical History colonoscopy Surgical History tonsillectomy Surgical History section x2 Surgical History Cervical biopsy 2018 Hospitalization History Surgery(s)/Childbirth(s) only
--- OUTSIDE RECORDS SUMMARY | 2018-05-16 07:57 | XMS REPORT ---
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 Name Role Phone BELINDA RIVAS Unavailable PROBLEMS Type Condition ICD9-CM Code MTM16-XP Code Onset Dates Condition Status SNOMED Code Problem Gastroesophageal reflux disease with esophagitis K21.0 Active 855831686 Problem PUD (peptic ulcer disease) K27.9 Active 57456751 Problem GERD with esophagitis K21.0 Active 036170082 ALLERGIES Substance Reaction Event Type Date Status Doxycycline Hyclate Unknown Drug Allergy Sep, Active SOCIAL HISTORY Never Assessed PLAN OF CARE Activity Details Follow Up 4 Weeks Reason: VITAL SIGNS Height 67 in 2016-09-27 Weight 122.8 lbs 2016-09-27 Temperature 97.6 degrees Fahrenheit 2016-09-27 Heart Rate 74 bpm 2016-09-27 Respiratory Rate 16 2016-09-27 BMI 19.23 kg/m2 2016-09-27 Blood pressure systolic 102 mmHg 2016-09-27 Blood pressure diastolic 62 mmHg 2016-09-27 MEDICATIONS No Known Medications RESULTS No Results PROCEDURES No Known procedures IMMUNIZATIONS No Known Immunizations MEDICAL (GENERAL) HISTORY Type Description Date Surgical History colonoscopy Surgical History tonsillectomy Surgical History section x2 Hospitalization History Surgery(s)/Childbirth(s) only
--- OUTSIDE RECORDS SUMMARY | 2018-05-16 07:58 | XMS REPORT | Continuity of Care Document ---
Author Author [facility] Organization [facility] Address [facility] [address] [place] [address] Phone Unavailable Support Name Relationship Address Phone Bishnu Molina M.D. Caregiver [address] [place] [address] LEILANI DAVILA MD Caregiver [address] [place] [address] CALLY RAJAN Next Of Kin [address] [place] [address] Insurance Providers Guarantor Kenisha Santiago Address [address] [place] [address] [facility] Policy Number [id number] Subscriber's Name Kenisha Santiago Relationship 18 Self / Same As Patient Advance Directives Directive Response Recorded Date/Time Do you have an Advanced Directive? No 05/06/00 8:18pm Advance Directives No 10/04/17 2:48pm Living Will No 10/04/17 2:48pm Health Care Proxy No 11/23/17 7:08pm Power of Health Service Coordinator for Health Care No 10/04/17 2:48pm Organ, Tissue, or Eye Donor No 10/04/17 2:48pm Do you have a signed organ donor card? No 05/06/00 8:18pm Chief Complaint and Reason for Visit Chief Complaint CONSTIPATION Reason for Visit Constipation Hypokalemia Problems Active ProblemsNo active problem information available. Past Problems Medical Problem Onset Date Status Constipation Unknown Acute Dehydration Unknown Acute Hypokalemia Unknown Acute Unknown Acute Systemic viral illness Unknown Acute Medications Current Home Medications Medication Dose Units Route Directions Days Qty Instructions Start Date Acetaminophen/Aspirin/Caffeine (Excedrin Caplet) 1 Each Tablet 1 Each ORAL As Needed For Pain Ferrous Sulfate 325 Mg Tab 325 Mg ORAL Twice A Day 30 Days 60 Tablet 11/18/17 Hydrocodone/Apap 7.5-325 1 Each Tablet 1 Each ORAL Every 4 Hours As Needed as needed for Pain 20 Tablet 11/18/17 Polyethylene Glycol (Miralax*) 17 Gm Powd.pack 17 Gm ORAL 2-3 Times Daily 1 Days 10 Packet 11/23/17 Past Home Medications Medication Directions Ordered Status Acetaminophen (Tylenol 325 Mg Tab*) 325 Mg Tablet, 325 Mg Oral as needed for Headache Discontinued Acetaminophen/Aspirin/Caffeine (Excedrin Caplet) 1 Each Tablet, 1 Each Oral As Needed Discontinued Acetaminophen/Aspirin/Caffeine (Excedrin Caplet) 1 Each Tablet, 1 Each Oral as needed for Headache Discontinued Acetaminophen/Hydrocodone Bitart ([place] 7.5-325 Tab*) 1 Tab Tablet, 1 Each [...] , Unknown Dose Oral As Needed Discontinued Azithromycin 1 Gm Packet, 250 Mg Oral Daily Discontinued Benzocaine/Menthol (Dermoplast [place]) 82.5 Ml Aerosol, 82.5 Ml Topical As Needed Discontinued Benzonatate (Tessalon Perles*) 100 Mg Cap, 100 Mg Oral Every 8 Hours As Needed as needed for Cough And Congestion Discontinued Flu Relief Tab , 1 Tab Oral [id number] Prn Discontinued Hydrocodone/Acetaminophen (Hydrocodone-Acetamin 5-325 Mg) 1 Each Tablet, 1 Tab Oral Every 6 Hrs As Needed For Pain as needed for Pain Discontinued Hydrocodone/Acetaminophen ([place] 5-325 Tablet) 1 Each Tablet, 0.25-1 Tab Oral As Needed Discontinued Ibuprofen , Unknown Dose Oral As Needed Discontinued Lanolin (Lanolin*) 56 Gm Cream.gm., 56 Gm Topical Discontinued Lanolin (Lanolin*) 454 Gm Oint...g., 454 Gm Topical As Needed Discontinued Loratadine (Claritin 10 Mg Tab*) 10 Mg Tablet, 10 Mg Oral Daily Discontinued Montelukast Sodium (Singulair 10 Mg Tab*) 10 Mg Tablet, 10 Mg Oral Daily Discontinued Ondansetron (Zofran Odt) 4 Mg Tab.rapdis, 1 Tab Sublingual Every 6 Hours As Needed as needed for Nausea 08/03/17 Discontinued Prednisone (Prednisone 10 Mg Tab*) 10 Mg Tablet, 10 Mg Oral Daily Discontinued Vit#96/Ferrous Fum/Fa* ( Tablet*) 1 Each [...] Status Smoking Status Current every day smoker 10/10/2017 7:36am Not Applicable Not Applicable Tobacco Use Cigarettes 05/29/2013 7:51am Not Applicable Not Applicable Sexual History Heterosexual 05/29/2013 7:51am Not Applicable Not Applicable Smoking Status Start Date Stop Date Current every day smoker Hospital Discharge Instructions No hospital discharge instruction information available. Plan of Care Discharge Date 11/23/17 10:30pm Condition at Discharge Stable Instructions/Education Provided Constipation (DC) Hypokalemia (DC) Prescriptions See Medication Section Referrals Bishnu Molina M.D. Address: [address] [place] [address] [address] [place] [address] Additional Instructions/Education Follow-up with Emergency Department in 2 days or your jigmaker Dr. Molina if symptoms do not improve. Functional Status Query Response Date Recorded Patient Behavior Cooperative November 23, 2017 7:30pm Allergies, Adverse Reactions, Alerts Allergen Type Severity Reaction Status Last Updated Doxycycline Allergy Unknown NAUSEA Active 08/03/17 Promethazine Allergy Unknown NAUSEA Active 08/03/17 Immunizations Query Response on File Recorded Date/Time Hx Diphtheria, Pertussis, Tetanus Vaccination Unknown 11/23/17 7:30pm Hx Influenza Vaccination No 11/23/17 7:30pm Hx Pneumococcal Vaccination No 11/23/17 7:30pm Vital Signs Acute Vital Signs Vital Response Date/Time Temperature (Fahrenheit) 98.3 degrees F (97.6 - 99.5) 11/23/2017 10:30pm Temperature Source Temporal Artery 11/23/2017 10:30pm Pulse Rate (adult) 67 bpm (60 - 90) 11/23/2017 10:30pm Respiratory Rate 18 bpm (12 - 24) 11/23/2017 10:30pm Blood Pressure 101/65 mm Hg 11/23/2017 10:30pm O2 Sat by Pulse Oximetry 100 % (90 - 100) 11/23/2017 10:30pm Oxygen Delivery Method Room Air 11/23/2017 10:30pm Pain Intensity 9 11/15/2017 9:30am Pain Location Body Site Modifier Lower 11/18/2017 1:16pm Pain Description Aching Cramping 11/18/2017 1:16pm Height 5 ft 7 in 11/23/2017 7:30pm Weight 149.91 lb 11/23/2017 7:30pm Body Mass Index 23.0 kg/m^2 11/23/2017 7:30pm Results Laboratory Results Test Name Result Units Flags Reference Collection Date/Time Result Date/ Time Comments Fasting Glucose 80 mg/dL 70-110 09/30/2017 10:50am 09/30/2017 10:57am Urine Fasting Glucose NEGATIVE 09/30/2017 10:50am 09/30/2017 11: 17am Glucose 1 Hour 83 MG/DL L 120-170 09/30/2017 12:29pm 09/30/2017 1:58pm Urine Glucose 1 Hour TRACE 09/30/2017 12:29pm 09/30/2017 12:46pm Group B Streptococcus DNA Probe NEGATIVE 10/25/2017 UNK 10/26/2017 2:37pm Urine Transitional Epithelial Cells NEGATIVE /hpf 0 11/15/2017 5:45am 11/15/2017 7:13am Urine Renal Epithelial Cells 1+ /hpf 11/15/2017 5:45am 11/15/2017 7: 13am Urine Amorphous Sediment 1+ H NEGATIVE 11/15/2017 5:45am 11/15/2017 7: 13am White Blood Count 10.4 K/uL 4.8-10.8 11/23/2017 9:15pm 11/23/2017 9: 22pm Red Blood Count 4.06 M/uL L 4.20-5.40 11/23/2017 9:15pm 11/23/2017 9: 22pm Hemoglobin 9.9 gm/dL L 12.0-16.0 11/23/2017 9:15pm 11/23/2017 9:22pm Hematocrit 32.9 % L 37.0-47.0 11/23/2017 9:15pm 11/23/2017 9:22pm Mean Corpuscular Volume 81.2 fL 81.0-99.0 11/23/2017 9:15pm 11/23/2017 9:22pm Mean Corpuscular Hemoglobin 24.3 pg L 27.0-31.0 11/23/2017 9:15pm 2017 9:22pm Mean Corpuscular Hemoglobin Concent 30.0 g/dL 30.0-37.0 11/23/2017 9: 15pm 11/23/2017 9:22pm Red Cell Distribution Width 16.7 % H 11.5-14.5 11/23/2017 9:15pm 2017 9:22pm Platelet Count 578 K/uL H 130-400 11/23/2017 9:15pm 11/23/2017 9:22pm Mean Platelet Volume 8.6 fL 7.4-10.4 11/23/2017 9:15pm 11/23/2017 9: 22pm Neutrophils (%) (Auto) 76.3 % H 42.2-75.2 11/23/2017 9:15pm 11/23/2017 9 :22pm Lymphocytes (%) (Auto) 14.5 % L 20.5-51.1 11/23/2017 9:15pm 11/23/2017 9 :22pm Monocytes (%) (Auto) 3.9 % 0-10 11/23/2017 9:15pm 11/23/2017 9:22pm Eosinophils (%) (Auto) 2.3 % 0-3 11/23/2017 9:15pm 11/23/2017 9:22pm Basophils (%) (Auto) 0.7 % 0.0-1.0 11/23/2017 9:15pm 11/23/2017 9:22pm Neutrophils # (Auto) 7.9 K/uL H 2.0-6.9 11/23/2017 9:15pm 11/23/2017 9: 22pm Lymphocytes # (Auto) 1.5 K/uL 1.2-3.4 11/23/2017 9:15pm 11/23/2017 9: 22pm Monocytes # (Auto) 0.4 K/uL 0.1-0.6 11/23/2017 9:15pm 11/23/2017 9: 22pm Eosinophils # (Auto) 0.2 K/uL 0.0-0.7 11/23/2017 9:15pm 11/23/2017 9: 22pm Basophils # (Auto) 0.1 K/uL 0.0-0.2 11/23/2017 9:15pm 11/23/2017 9: 22pm Random Glucose 95 mg/dL 70-110 11/23/2017 9:15pm 11/23/2017 9:40pm Blood Urea Nitrogen 12 mg/dL 7-18 11/23/2017 9:1511/23/2017 9:40pm Creatinine 0.8 mg/dL 0.55-1.02 11/23/2017 9:1511/23/2017 9:40pm Glomerular Filtration Rate Calc 84.8 mL/min 11/23/2017 9:15pm 2017 9:40pm Sodium Level 139 mEq/L 136-145 11/23/2017 9:1511/23/2017 9:40pm Potassium Level 3.3 mEq/L L 3.5-5.0 11/23/2017 9:1511/23/2017 9:40pm Chloride Level 102 mEq/L 98-107 11/23/2017 9:1511/23/2017 9:40pm Carbon Dioxide Level 25.6 mEq/L 21-32 11/23/2017 9:11/23/2017 9: 40pm Calcium Level 8.3 mg/dL L 8.8-10.5 11/23/2017 9:1511/23/2017 9:40pm Total Protein 6.8 gm/dL 6.4-8.2 11/23/2017 9:1511/23/2017 9:40pm Albumin 2.2 gm/dL L 3.4-5.0 11/23/2017 9:11/23/2017 9:40pm Total Bilirubin 0.22 mg/dL 0.00-1.00 11/23/2017 9:11/23/2017 9: 40pm Aspartate Amino Transf (AST/SGOT) 9 U/L L 15-37 11/23/2017 9:152017 9:40pm Alanine Aminotransferase (ALT/SGPT) 13 U/L 12-78 11/23/2017 9:15pm 06/2018 9:40pm Total Alkaline Phosphatase 160 U/L H 46-116 11/23/2017 9:15pm 2017 9:40pm Urine Color ORANGE H YELLOW 11/23/2017 8:35pm 11/23/2017 9:39pm Urine Appearance CLEAR CLEAR 11/23/2017 8:35pm 11/23/2017 9:39pm Urine Glucose (UA) NEGATIVE mg/dL NEGATIVE 11/23/2017 8:35pm 2017 9:39pm Urine Bilirubin NEGATIVE NEGATIVE 11/23/2017 8:35pm 11/23/2017 9: 39pm Urine Ketones NEGATIVE mg/dL NEGATIVE 11/23/2017 8:35pm 11/23/2017 9: 39pm Urine Specific Turner >=1.030 H 1.010-1.025 11/23/2017 8:35pm 2017 9:39pm Urine Occult Blood NEGATIVE NEGATIVE 11/23/2017 8:35pm 11/23/2017 9: 39pm Urine pH 6.0 5.0-8.0 11/23/2017 8:35pm 11/23/2017 9:39pm Urine Protein 1+ (30 mg/dl) mg/dL H NEGATIVE 11/23/2017 8:35pm 2017 9:39pm Urine Urobilinogen 0.2 mg/dL E.U./dL 0.2-1.0 11/23/2017 8:35pm 2017 9:39pm Urine Nitrate NEGATIVE NEGATIVE 11/23/2017 8:35pm 11/23/2017 9:39pm Urine Leukocyte Esterase NEGATIVE NEGATIVE 11/23/2017 8:35pm 2017 9:39pm Urine RBC 1-2 /hpf H 0 11/23/2017 8:35pm 11/23/2017 9:40pm Urine WBC 1-2 /hpf 0-4 11/23/2017 8:35pm 11/23/2017 9:40pm Urine Squamous Epithelial Cells 0-1 /hpf 0-1 11/23/2017 8:35pm 2017 9:40pm Urine Calcium Oxalate Crystals 1+ (FEW) /hpf H 0 11/23/2017 8:35pm 11/23 9:40pm Urine Bacteria TRACE NEGATIVE 11/23/2017 8:35pm 11/23/2017 9:40pm Urine Mucus MANY H NEGATIVE 11/23/2017 8:35pm 11/23/2017 9:40pm Procedures Procedure Status Date Provider(s) Gynecologic examination under anesthesia Completed 10/10/17 Bishnu Molina M.D. Repeat section Completed 11/15/17 Bishnu Molina M.D. X-ray of kidneys, ureter, and bladder, single view Completed 11/15/17 Bishnu Molina M.D. Computed tomography of abdomen and pelvis with contrast Completed 11/17/17 JULIAN GREER D.O. Encounters Encounter Location Arrival/Admit Date Discharge/Depart Date Attending Provider Departed Emergency Room [facility] 11/23/17 6:08pm 11/23/17 10:30pm LEILANI DAVILA MD Discharged Inpatient [facility] 11/15/17 5:42am 11/18/17 1:45pm Bishnu Molina M.D. Registered Referred [facility] 10/25/17 4:56pm Bishnu Molina M.D. Registered [facility] 10/10/17 6:13am Bishnu Molina M.D. Registered Clinic [facility] 09/30/17 10:42am Bishnu Molina M.D. Recent Diagnosis
--- OUTSIDE RECORDS SUMMARY | 2018-05-16 07:58 | XMS REPORT | Continuity of Care Document ---
Author Author [facility] Organization [facility] Address [facility] [address] [place] [address] Phone Unavailable Support Name Relationship Address Phone Bishnu Molina M.D. Caregiver [address] [place], [place] [address] LEILANI JAMES MD Caregiver [address] [place] [address] Unavailable CALLY RAJAN Next Of Kin [address] [place] [address] Insurance Providers Guarantor Kenisha Santiago Address [address] [place] [address] Payer [employer] [facility] Policy Number [id number] Subscriber's Name Kenisha Santiago Relationship 18 Self / Same As Patient Advance Directives Directive Response Recorded Date/Time Do you have an Advanced Directive? No 05/06/00 8:18pm Advance Directives No 10/04/16 10:37am Living Will No 10/04/16 10:37am Health Care Proxy No 08/03/17 2:08pm Power of Physician Allergist Immunologist for Health Care No 10/04/16 10:37am Organ, Tissue, or Eye Donor No 11/26/14 11:30am Do you have a signed organ donor card? No 05/06/00 8:18pm Chief Complaint and Reason for Visit Chief Complaint FLU SYNDROME Reason for Visit [id number] Dehydration Problems Active ProblemsNo active problem information available. Past Problems Medical Problem Onset Date Status Dehydration Unknown Acute Unknown Acute Systemic viral illness Unknown Acute Medications Current Home Medications Medication Dose Units Route Directions Days Qty Instructions Start Date Flu Relief Tab 1 Tab ORAL [id number] Prn Hydrocodone/Acetaminophen ([place] 5-325 Tablet) 1 Each Tablet 0.25-1 Tab ORAL As Needed Ondansetron (Zofran Odt) 4 Mg Tab.rapdis 1 Tab SUBLINGUAL Every 6 Hours As Needed as needed for Nausea 10 Drcm Unit 08/03/17 Past Home Medications Medication Directions Ordered Status Acetaminophen (Tylenol 325 Mg Tab*) 325 Mg Tablet, 325 Mg Oral as needed for Headache Discontinued Acetaminophen/Aspirin/Caffeine (Excedrin Caplet) 1 Each Tablet, 1 Each Oral As Needed Discontinued Acetaminophen/Aspirin/Caffeine (Excedrin Caplet) 1 Each Tablet, 1 Each Oral as needed for Headache Discontinued Acetaminophen/Hydrocodone Bitart ([place] 7.5-325 Tab*) 1 Tab Tablet, 1 Each [...] Dose Oral As Needed Discontinued Benzocaine/Menthol (Dermoplast [place]) 82.5 Ml Aerosol, 82.5 Ml Topical As Needed Discontinued Ibuprofen , Unknown Dose Oral As Needed Discontinued Lanolin (Lanolin*) 56 Gm Cream.gm., 56 Gm Topical Discontinued Lanolin (Lanolin*) 454 Gm Oint...g., 454 Gm Topical As Needed Discontinued Vit#96/Ferrous Fum/Fa* ( Tablet*) 1 Each [...] Status Smoking Status Current every day smoker 10/04/2016 12:58pm Not Applicable Not Applicable Tobacco Use Cigarettes 05/29/2013 7:51am Not Applicable Not Applicable Sexual History Heterosexual 05/29/2013 7:51am Not Applicable Not Applicable Smoking Status Start Date Stop Date Current every day smoker Status Date Recorded Patient currently August 03, 2017 Hospital Discharge Instructions No hospital discharge instruction information available. Plan of Care Discharge Date 08/03/17 8:15pm Condition at Discharge Improved Instructions/Education Provided Dehydration (ED) Prescriptions See Medication Section Referrals Bishnu Molina M.D. Address: [address] [place], [place] [id number] Additional Instructions/Education Rest, drink lots of fluids Return to ER if needed, for problems or worsening symptoms Make an appointment to see Dr. Molina this week, to be re-checked. Call his office Saturday morning, to schedule. Functional Status Query Response Date Recorded Patient Behavior Cooperative August 03, 2017 2:07pm Allergies, Adverse Reactions, Alerts Allergen Type Severity Reaction Status Last Updated Doxycycline Allergy Unknown NAUSEA Active 08/03/17 Promethazine Allergy Unknown NAUSEA Active 08/03/17 Immunizations Query Response on File Recorded Date/Time Hx Diphtheria, Pertussis, Tetanus Vaccination Unknown 08/03/17 2:07pm Hx Influenza Vaccination No 08/03/17 2:07pm Hx Pneumococcal Vaccination No 08/03/17 2:07pm Vital Signs Acute Vital Signs Vital Response Date/Time Temperature (Fahrenheit) 99.0 degrees F (97.6 - 99.5) 08/03/2017 7:59pm Temperature Source Temporal Artery 08/03/2017 7:59pm Pulse Rate (adult) 90 bpm (60 - 90) 08/03/2017 7:59pm Respiratory Rate 29 bpm (12 - 24) 08/03/2017 7:59pm Blood Pressure 83/45 mm Hg 08/03/2017 7:59pm O2 Sat by Pulse Oximetry 98 % (90 - 100) 08/03/2017 7:59pm Oxygen Delivery Method Room Air 08/03/2017 7:59pm Height 5 ft 9 in 08/03/2017 2:07pm Weight 143.30 lb 08/03/2017 2:07pm Body Mass Index 21.0 kg/m^2 08/03/2017 2:07pm Results Laboratory Results Test Name Result Units Flags Reference Collection Date/Time Result Date/ Time Comments Urine Color YELLOW YELLOW 08/03/2017 3:56pm 08/03/2017 4:26pm Urine Appearance SL CLOUDY H CLEAR 08/03/2017 3:56pm 08/03/2017 4: 26pm Urine Glucose (UA) NEGATIVE mg/dL NEGATIVE 08/03/2017 3:56pm 2017 4:26pm Urine Bilirubin NEGATIVE NEGATIVE 08/03/2017 3:56pm 08/03/2017 4: 26pm Urine Ketones 3+ (80 or > mg/dl) mg/dL H NEGATIVE 08/03/2017 3:56pm 4:26pm Urine Specific [place] 1.010 1.010-1.025 08/03/2017 3:56pm 2017 4:26pm Urine Occult Blood TRACE INTACT H NEGATIVE 08/03/2017 3:56pm 2017 4:26pm URINE CULTURE ORDERED PER MEDICAL STAFF-APPROVED PROTOCOL FOR LAB. Urine pH 6.5 5.0-8.0 08/03/2017 3:56pm 08/03/2017 4:26pm Urine Protein TRACE mg/dL H NEGATIVE 08/03/2017 3:56pm 08/03/2017 4: 26pm Urine Urobilinogen 1.0 mg/dL E.U./dL 0.2-1.0 08/03/2017 3:56pm 2017 4:26pm Urine Nitrate NEGATIVE NEGATIVE 08/03/2017 3:56pm 08/03/2017 4:26pm Urine Leukocyte Esterase NEGATIVE NEGATIVE 08/03/2017 3:56pm 2017 4:26pm Urine RBC NEGATIVE /hpf 0 08/03/2017 3:56pm 08/03/2017 4:36pm Urine WBC 1-2 /hpf 0-4 08/03/2017 3:56pm 08/03/2017 4:36pm Urine Squamous Epithelial Cells 0-1 /hpf 0-1 08/03/2017 3:56pm 2017 4:36pm Urine Bacteria 1+ H NEGATIVE 08/03/2017 3:56pm 08/03/2017 4:36pm Influenza Type A (Rapid) NEGATIVE 08/03/2017 2:26pm 08/03/2017 3: 06pm Influenza Type B (Rapid) NEGATIVE 08/03/2017 2:26pm 08/03/2017 3: 06pm Procedures Procedure Status Date Provider(s) Limited obstetrical ultrasound Completed 08/03/17 LEILANI JAMES MD Portable x-ray of chest Completed 08/03/17 LEILANI JAMES MD Encounters Encounter Location Arrival/Admit Date Discharge/Depart Date Attending Provider Departed Emergency Room [facility] 08/03/17 1:57pm 08/03/17 8:15pm LEILANI JAMES MD Recent Diagnosis
--- OUTSIDE RECORDS SUMMARY | 2018-05-16 07:58 | XMS REPORT | Continuity of Care Document ---
Author Author [facility] Organization [facility] Address [facility] [address] [place] [address] Phone Unavailable Support Name Relationship Address Phone Bishnu Molina M.D. Caregiver [address] [place] [address] Bishnu Molina M.D. Caregiver [address] [place] [address] Bishnu Molina M.D. Caregiver [address] [place] [id number] CALLY RAJAN Next Of Kin [address] [place] [address] Insurance Providers Guarantor Kenisha Santiago Address [address] [place] [address] [facility] Policy Number [id number] Subscriber's Name JackKenisha G Relationship 18 Self / Same As Patient Advance Directives Directive Response Recorded Date/Time Do you have an Advanced Directive? No 05/06/00 8:18pm Advance Directives No 10/04/17 2:48pm Living Will No 10/04/17 2:48pm Health Care Proxy No 11/15/17 9:07am Power of Leather Repairer for Health Care No 10/04/17 2:48pm Organ, [...] as needed for Pain 20 Tablet 11/18/17 Past Home Medications Medication Directions Ordered Status Acetaminophen (Tylenol 325 Mg Tab*) 325 Mg Tablet, 325 Mg Oral as needed for Headache Discontinued Acetaminophen/Aspirin/Caffeine (Excedrin Caplet) 1 Each Tablet, 1 Each Oral As Needed Discontinued Acetaminophen/Aspirin/Caffeine (Excedrin Caplet) 1 Each Tablet, 1 Each Oral as needed for Headache Discontinued Acetaminophen/Hydrocodone Bitart (Geyser 7.5-325 Tab*) 1 Tab Tablet, 1 Each [...] 250 Mg Oral Daily Discontinued Benzocaine/Menthol (Dermoplast [place]) 82.5 Ml Aerosol, 82.5 Ml Topical As Needed Discontinued Benzonatate (Tessalon Perles*) 100 Mg Cap, 100 Mg Oral Every 8 Hours As Needed as needed for Cough And Congestion Discontinued Flu Relief Tab , 1 Tab Oral [id number] Prn Discontinued Hydrocodone/Acetaminophen (Hydrocodone-Acetamin 5-325 Mg) 1 Each Tablet, 1 Tab Oral Every 6 Hrs As Needed For Pain as needed for Pain Discontinued Hydrocodone/Acetaminophen (Geyser 5-325 Tablet) 1 Each Tablet, 0.25-1 Tab [...] information available. Plan of Care Discharge Date 11/18/17 1:45pm Disposition 01 HOME, RESIDENTIAL,ASSISTED LIVING Instructions/Education Provided Section (DC) Prescriptions See Medication Section Functional Status No functional status information available. Allergies, Adverse Reactions, Alerts Allergen Type Severity Reaction Status Last Updated Doxycycline Allergy Unknown NAUSEA Active 08/03/17 Promethazine Allergy Unknown NAUSEA Active 08/03/17 Immunizations Query Response on File Recorded Date/Time Hx Diphtheria, Pertussis, Tetanus Vaccination Unknown 08/03/17 2:07pm Hx Influenza Vaccination N - DECLINES 10/04/17 2:48pm Hx Pneumococcal Vaccination No 10/04/17 2:48pm Vital Signs Acute Vital Signs Vital Response Date/Time Temperature (Fahrenheit) 99.1 degrees F (97.6 - 99.5) 11/18/2017 8:39am Temperature Source Temporal Artery 11/18/2017 8:39am Pulse Rate (adult) 80 bpm (60 - 90) 11/18/2017 8:39am Respiratory Rate 16 bpm (12 - 24) 11/18/2017 8:39am Blood Pressure 117/72 mm Hg 11/18/2017 8:39am O2 Sat by Pulse Oximetry 98 % (90 - 100) 11/18/2017 8:39am Pain Intensity 9 11/15/2017 9:30am Pain Location Body Site Modifier Lower 11/18/2017 1:16pm Pain Description Aching Cramping 11/18/2017 1:16pm Results Laboratory Results Test Name Result Units Flags Reference Collection Date/Time Result Date/ Time Comments Fasting Glucose 80 mg/dL 70-110 09/30/2017 10:50am 09/30/2017 10:57am Urine Fasting Glucose NEGATIVE 09/30/2017 10:50am 09/30/2017 11: 17am Glucose 1 Hour 83 MG/DL L 120-170 09/30/2017 12:29pm 09/30/2017 1:58pm Urine Glucose 1 Hour TRACE 09/30/2017 12:29pm 09/30/2017 12:46pm Group B Streptococcus DNA Probe NEGATIVE 10/25/2017 UNK 10/26/2017 2:37pm White Blood Count 12.6 K/uL H 4.8-10.8 11/18/2017 6:45am 11/18/2017 6: 55am Red Blood Count 3.94 M/uL L 4.20-5.40 11/18/2017 6:45am 11/18/2017 6: 55am Hemoglobin 10.0 gm/dL L 12.0-16.0 11/18/2017 6:45am 11/18/2017 6:55am Hematocrit 33.3 % L 37.0-47.0 11/18/2017 6:45am 11/18/2017 6:55am Mean Corpuscular Volume 84.5 fL 81.0-99.0 11/18/2017 6:45am 11/18/2017 6:55am Mean Corpuscular Hemoglobin 25.3 pg L 27.0-31.0 11/18/2017 6:45am 2017 6:55am Mean Corpuscular Hemoglobin Concent 30.0 g/dL 30.0-37.0 11/18/2017 6: 45am 11/18/2017 6:55am Red Cell Distribution Width 17.5 % H 11.5-14.5 11/18/2017 6:45am 2017 6:55am Platelet Count 374 K/uL 130-400 11/18/2017 6:45am 11/18/2017 6:55am Mean Platelet Volume 8.9 fL 7.4-10.4 11/18/2017 6:45am 11/18/2017 6: 55am Neutrophils (%) (Auto) 90.2 % H 42.2-75.2 11/18/2017 6:45am 11/18/2017 6 :55am Lymphocytes (%) (Auto) 5.1 % L 20.5-51.1 11/18/2017 6:45am 11/18/2017 6: 55am Monocytes (%) (Auto) 2.5 % 0-10 11/18/2017 6:45am 11/18/2017 6:55am Eosinophils (%) (Auto) 1.7 % 0-3 11/18/2017 6:45am 11/18/2017 6:55am Basophils (%) (Auto) 0.5 % 0.0-1.0 11/18/2017 6:45am 11/18/2017 6:55am Neutrophils # (Auto) 11.4 K/uL H 2.0-6.9 11/18/2017 6:45am 11/18/2017 6: 55am Lymphocytes # (Auto) 0.6 K/uL L 1.2-3.4 11/18/2017 6:45am 11/18/2017 6: 55am Monocytes # (Auto) 0.3 K/uL 0.1-0.6 11/18/2017 6:45am 11/18/2017 6: 55am Eosinophils # (Auto) 0.2 K/uL 0.0-0.7 11/18/2017 6:45am 11/18/2017 6: 55am Basophils # (Auto) 0.1 K/uL 0.0-0.2 11/18/2017 6:4511/18/2017 6: 55am Urine Color YELLOW YELLOW 11/15/2017 5:4511/15/2017 6:52am Urine Appearance CLOUDY H CLEAR 11/15/2017 5:4511/15/2017 6:52am Urine Glucose (UA) NEGATIVE mg/dL NEGATIVE 11/15/2017 5:452017 6:52am Urine Bilirubin NEGATIVE NEGATIVE 11/15/2017 5:45am 11/15/2017 6: 52am Urine Ketones NEGATIVE mg/dL NEGATIVE 11/15/2017 5:45am 11/15/2017 6: 52am Urine Specific [employer] 1.025 1.010-1.025 11/15/2017 5:45am 2017 6:52am Urine Occult Blood 2+ (Moderate) H NEGATIVE 11/15/2017 5:45am 2017 6:52am URINE CULTURE ORDERED PER MEDICAL STAFF-APPROVED PROTOCOL FOR LAB. Urine pH 7.5 5.0-8.0 11/15/2017 5:45am 11/15/2017 6:52am Urine Protein NEGATIVE mg/dL NEGATIVE 11/15/2017 5:45am 11/15/2017 6: 52am Urine Urobilinogen 0.2 mg/dL E.U./dL 0.2-1.0 11/15/2017 5:45am 2017 6:52am Urine Nitrate NEGATIVE NEGATIVE 11/15/2017 5:45am 11/15/2017 6:52am Urine Leukocyte Esterase NEGATIVE NEGATIVE 11/15/2017 5:45am 2017 6:52am Urine RBC 3-4 /hpf H 0 11/15/2017 5:45am 11/15/2017 7:13am Urine WBC NEGATIVE /hpf 0-4 11/15/2017 5:45am 11/15/2017 7:13am Urine Squamous Epithelial Cells 0-1 /hpf 0-1 11/15/2017 5:45am 2017 7:13am Urine Transitional Epithelial Cells NEGATIVE /hpf 0 11/15/2017 5:45am 11/15/2017 7:13am Urine Renal Epithelial Cells 1+ /hpf 11/15/2017 5:45am 11/15/2017 7: 13am Urine Bacteria NEGATIVE NEGATIVE 11/15/2017 5:45am 11/15/2017 7:13am Urine Amorphous Sediment 1+ H NEGATIVE 11/15/2017 5:45am 11/15/2017 7: 13am Procedures Procedure Status Date Provider(s) Gynecologic examination under anesthesia Completed 10/10/17 Bishnu Molina M.D. Repeat section Completed 11/15/17 Bishnu Molina M.D. X-ray of kidneys, ureter, and bladder, single view Completed 11/15/17 Bishnu Molina M.D. Computed tomography of abdomen and pelvis with contrast Completed 11/17/17 JULIAN GREER D.O. Encounters Encounter Location Arrival/Admit Date Discharge/Depart Date Attending Provider Discharged Inpatient [place] 11/15/17 5:42am 11/18/17 1:45pm Bishnu Molina M.D. Registered [facility] 10/25/17 4:56pm Bishnu Molina M.D. Registered [facility] [place] 10/10/17 6:13am Bishnu Molina M.D. Registered [facility] 09/30/17 10:42am Bishnu Molina M.D.
--- OUTSIDE RECORDS SUMMARY | 2018-05-16 07:59 | XMS REPORT | Continuity of Care Document ---
Demographics Preferred Language Unknown Marital Status Unknown Faith Affiliation Unknown Race Unknown Ethnic Group Unknown Author Author [facility] [facility] Organization [employer] [facility] Address Unknown Phone Unavailable Allergies Active Description Code Type Severity Reaction Onset Reported/Identified Relationship to Patient Clinical Status Yes DOXYCYCLINE 07097327234 Drug Allergy N/A N/A [place] DYCLONINE HCL 58527 Drug Allergy N/A N/A Yes DOXYCYCLINE 07449490962 Drug Allergy N/A N/A Medications Medication Packaging Start Date Stop Date Route Dosage Sig NYSTATIN gm 04/23/2012 EXTERNAL 30 four times daily HYDROCODONE-ACETAMINOPHEN ORAL 06/08/2013 ORAL 2020 every six hours PERMETHRIN External 06/28/2014 06/29/2014 External 737347 BACTRIM DS ORAL 02/16/2015 02/23/2015 ORAL 77 daily TRAMADOL HCL ORAL 11/02/2015 11/07/2015 ORAL 2020 4 times a day AMOXICILLIN ORAL 11/02/2015 11/09/2015 ORAL 2121 three times daily HYDROCODONE-ACETAMINOPHEN ORAL 08/201503/26/2017 ORAL 1616 every 6 hours NORCO ORAL 04/25/2017 ORAL 1616 every 6 hours NORCO ORAL 06/04/2017 ORAL 1616 qh8 NORCO ORAL 07/16/2017 ORAL every 8 hours SUCRALFATE ORAL 08/16/2017 08/17/2017 ORAL 11 daily PROTONIX ORAL 08/16/2017 04/16/2018 ORAL 3030 daily CARAFATE ORAL 08/23/2017 04/16/2018 ORAL 5656 4 times a day NORCO ORAL 09/10/2017 ORAL 1616 every 6 hours TERAZOL 7 VAGINAL 10/01/2017 10/08/2017 VAGINAL 4545 at bedtime NORCO ORAL 10/01/2017 ORAL 1212 every 6 hours PERMETHRIN 11/04/2017 External 60 NORCO ORAL 11/21/2017 ORAL 1616 every 6 hours FLUTICASONE PROPIONATE External 12/28/2017 External 3030 twice daily FLAGYL ORAL 12/05/2017 12/12/2017 ORAL 2121 3 times a day BACTRIM DS ORAL 12/05/2017 12/12/2017 ORAL 1414 twice daily TRAMADOL HCL ORAL 12/11/2017 04/16/2018 ORAL 2020 q4-6h ORTHO TRI-CYCLEN (28) ORAL 2017 ORAL 2828 daily Problems Date Dx Coded Attending Type Code Diagnosis Diagnosed By 04/05/2017 PHONG JACOBSON, LASHONDA R Ot O20.9 HEMORRHAGE IN EARLY , UNSPECIFI 04/05/2017 PHONG JACOBSON, LASHONDA R Ot Z3A.01 LESS THAN 8 WEEKS GESTATION OF 04/10/2017 LASHONDA DARLING MD R Ot O20.9 HEMORRHAGE IN EARLY , UNSPECIFI 04/10/2017 PHONG JACOBSON, LASHONDA R Ot Z3A.01 LESS THAN 8 WEEKS GESTATION OF 04/24/2017 LASHONDA DARLING MD R Ot O20.9 HEMORRHAGE IN EARLY , UNSPECIFI 04/24/2017 PHONG JACOBSON, LASHONDA R Ot Z3A.01 LESS THAN 8 WEEKS GESTATION OF Procedures There is no data. Results There is no data. Encounters ACCT No. Visit Date/Time Discharge Status Pt. Type Provider Facility Loc./Unit Complaint [id number] 04/04/2017 13:19:00 04/04/2017 23:59:59 CLS Outpatient LASHONDA DARLING MD [facility] RAD O20.9 [id number] 05/16/2018 07:54:00 ACT Emergency KAITLYN ZHOU MD [facility] ER CRAMPING;PERIOD [id number] 05/15/2015 06:37:37 05/15/2015 06:37:37 DIS Outpatient [id number] 07/05/2014 15:36:52 Document Registration [id number] 06/29/2014 06:14:04 Document Registration [id number] 06/29/2014 06:14:03 Document Registration [id number] 06/29/2014 06:14:02 Document Registration [id number] 06/29/2014 06:14:01 Document Registration [id number] 06/29/2014 06:14:00 Document Registration [id number] 04/02/2014 06:02:28 Document Registration [id number] 04/28/2018 10:59:22 04/28/2018 10:59:22 DIS Outpatient [facility] [id number] 10/14/2017 16:00:00 10/14/2017 23:59:59 CLS Out[facility] [id number] 11/04/2017 15:46:06 Document Registration
[2018-05-16] MEDS ORDERED: NORG1TAB15 (08:20)
--- NOTE | 2018-05-16 09:52 | ED GU-Female ---
General Chief Complaint: -Female Stated Complaint: CRAMPING;PERIOD Nursing Triage Note: ARRIVED VIA AMB TO ROOM 09. STATES SHE STARTED HER PERIOD 3 DAYS AGO ET WAS NORMAL AT FIRST THEN TURNED HEAVY YESTERDAY WITH CRAMPING. TODAY DENIES BLEEDING BUT HAVING SEVERE RIGHT LOWER TO MID ABD PAIN. 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 Nursing Sepsis Screen: No Definite Risk Source: patient Exam Limitations: no limitations History of Present Illness Date Seen by Provider: May 16, 2018 Time Seen by Provider: 09:47 Initial Comments The patient is a 32-year-old white female. She reports that yesterday she had heavy menstrual Flow and pain which was crampy. She does not normally have crampy pain. Today she continues to have crampy pain but no more flow. She has taken nothing for this. She also reports that on Saturday she is scheduled for colposcopy for cervical dysplasia. There is also the possibility that she could be . She states that this period would be about 2 days early. She was dozing when I entered the room but immediately after awakening her she professed great pain. Timing/Duration: yesterday Severity/Quality: severe, cramping Location: suprapubic Allergies and Home Medications Allergies Coded Allergies: doxycycline (Verified Allergy, Unknown, 05/16/18) Patient Home Medication List Home Medication List Reviewed: Yes Review of Systems Review of Systems Constitutional: see HPI EENTM: no symptoms reported Respiratory: no symptoms reported Cardiovascular: no symptoms reported Gastrointestinal: abdominal pain, other (suprapubic) Musculoskeletal: no symptoms reported Skin: no symptoms reported Psychiatric/Neurological: No Symptoms Reported Endocrine: No Symptoms Reported Hematologic/Lymphatic: No Symptoms Reported Past Rpgnthx-Nmnnqs-Vddchn Hx Patient Social History Alcohol Use: Denies Use Recreational Drug Use: No Smoking Status: Current Everyday Smoker Recent Foreign Travel: No Contact w/Someone Who Travel: No Recent Infectious Disease Expo: No Recent Hopitalizations: No Past Medical History Surgeries: Yes Section Respiratory: No Cardiac: No Neurological: No Genitourinary: No Gastrointestinal: No Musculoskeletal: No Endocrine: No HEENT: No Cancer: Yes (PRECERVICAL) Integumentary: No Physical Exam Vital Signs Vital Signs - First Documented 05/16/18 08:00 Temp 98.0 Pulse 113 Resp 16 B/P (MAP) 112/80 (91) Pulse Ox 98 O2 Delivery Room Air Capillary Refill : Less Than 3 Seconds Height, Weight, BMI Height: 5'8.00" Weight: 135lbs. oz. 61.793458hw; BMI Method:Stated General Appearance: moderate distress HEENT: normal ENT inspection Neck: full range of motion Cardiovascular: regular rate, rhythm Respiratory: chest non-tender, lungs clear, normal breath sounds, no respiratory distress, no accessory muscle use, respiratory distress The patient was asked to lie on her back. At this point she advanced great pain. As I reached for her she moved about the bed as to avoid contact. Progress/Results/Core Measures Suspected Sepsis Recent Fever Within 48 Hours: No Infection Criteria Present: Suspected New Infection New/Unexplained Altered Menta: No Sepsis Screen: No Definite Risk SIRS Temperature:98.0 Pulse: 113 Respiratory Rate: 16 Laboratory Tests 05/16/18 08:33: White Blood Count 10.1 Blood Pressure 112 /80 Mean: 91 Laboratory Tests 05/16/18 08:33: Creatinine 0.75, Platelet Count 301, Total Bilirubin 0.4 Results/Orders Lab Results Laboratory Tests Test 05/16/18 08:33 05/16/18 08:44 Range/Units White Blood Count 10.1 4.3-11.0 10^3/uL Red Blood Count 4.46 4.35-5.85 10^6/uL Hemoglobin 11.7 11.5-16.0 G/DL Hematocrit 37 35-52 % Mean Corpuscular Volume 82 80-99 FL Mean Corpuscular Hemoglobin 26 25-34 PG Mean Corpuscular Hemoglobin Concent 32 32-36 G/DL Red Cell Distribution Width 15.1 H 10.0-14.5 % Platelet Count 301 130-400 10^3/uL Mean Platelet Volume 10.6 H 7.4-10.4 FL Neutrophils (%) (Auto) 79 H 42-75 % Lymphocytes (%) (Auto) 11 L 12-44 % Monocytes (%) (Auto) 8 0-12 % Eosinophils (%) (Auto) 2 0-10 % Basophils (%) (Auto) 0 0-10 % Neutrophils # (Auto) 8.0 H 1.8-7.8 X 10^3 Lymphocytes # (Auto) 1.1 1.0-4.0 X 10^3 Monocytes # (Auto) 0.8 0.0-1.0 X 10^3 Eosinophils # (Auto) 0.2 0.0-0.3 10^3/uL Basophils # (Auto) 0.0 0.0-0.1 10^3/uL Sodium Level 137 135-145 MMOL/L Potassium Level 4.1 3.6-5.0 MMOL/L Chloride Level 105 98-107 MMOL/L Carbon Dioxide Level 20 L 21-32 MMOL/L Anion Gap 12 5-14 MMOL/L Blood Urea Nitrogen 16 7-18 MG/DL Creatinine 0.75 0.60-1.30 MG/DL Estimat Glomerular Filtration Rate > 60 BUN/Creatinine Ratio 21 Glucose Level 84 70-105 MG/DL Calcium Level 9.3 8.5-10.1 MG/DL Corrected Calcium 9.1 8.5-10.1 MG/DL Total Bilirubin 0.4 0.1-1.0 MG/DL Aspartate Amino Transf (AST/SGOT) 17 5-34 U/L Alanine Aminotransferase (ALT/SGPT) 17 0-55 U/L Alkaline Phosphatase 61 40-136 U/L Total Protein 7.0 6.4-8.2 GM/DL Albumin 4.2 3.2-4.5 GM/DL Urine Color YELLOW Urine Clarity CLEAR Urine pH 7 5-9 Urine Specific [place] 1.010 L 1.016-1.022 Urine Protein NEGATIVE NEGATIVE Urine Glucose (UA) NEGATIVE NEGATIVE Urine Ketones NEGATIVE NEGATIVE Urine Nitrite NEGATIVE NEGATIVE Urine Bilirubin NEGATIVE NEGATIVE Urine Urobilinogen NORMAL NORMAL MG/DL Urine Leukocyte Esterase NEGATIVE NEGATIVE Urine RBC (Auto) NEGATIVE NEGATIVE Urine RBC NONE /HPF Urine WBC NONE /HPF Urine Squamous Epithelial Cells 0-2 /HPF Urine Crystals NONE /LPF Urine Bacteria NEGATIVE /HPF Urine Casts NONE /LPF Urine Mucus NEGATIVE /LPF Urine Culture Indicated NO Urine Test NEGATIVE NEGATIVE Urine Opiates Screen NEGATIVE NEGATIVE Urine Oxycodone Screen NEGATIVE NEGATIVE Urine Methadone Screen NEGATIVE NEGATIVE Urine Propoxyphene Screen NEGATIVE NEGATIVE Urine Barbiturates Screen NEGATIVE NEGATIVE Ur Tricyclic Antidepressants Screen NEGATIVE NEGATIVE Urine Phencyclidine Screen NEGATIVE NEGATIVE Urine Amphetamines Screen NEGATIVE NEGATIVE Urine Methamphetamines Screen NEGATIVE NEGATIVE Urine Benzodiazepines Screen NEGATIVE NEGATIVE Urine Cocaine Screen NEGATIVE NEGATIVE Urine Cannabinoids Screen POSITIVE H NEGATIVE My Orders Orders - KAITLYN ZHOU MD Urine Bedside (05/16/18 08:27) Hcg,Qualitative Urine (05/16/18 09:40) Cbc With Automated Diff (05/16/18 09:53) Comprehensive Metabolic Panel (05/16/18 09:53) Ua Culture If Indicated (05/16/18 09:53) Ibuprofen Tablet (Motrin Tablet) (05/16/18 10:05) Drug Screen Stat (Urine) (05/16/18 10:10) Ct Abdomen/Pelvis W (05/16/18 10:35) Fentanyl Injection (Sublimaze Injection (05/16/18 10:45) Iohexol Injection (Omnipaque 350 Mg/Ml 1 (05/16/18 10:45) Contrast Received (Contrast Received) (05/16/18 10:45) Ns (Ivpb) (Sodium Chloride 0.9%) (05/16/18 10:45) Medications Given in ED Current Medications Medications Dose Ordered Sig/Anoop Route Start Time Stop Time Status Last Admin Dose Admin Fentanyl Citrate 50 mcg ONCE ONCE IVP 05/16/18 10:45 05/16/18 10:46 DC 05/16/18 11:04 50 MCG Ibuprofen 600 mg STK-MED ONCE PO 05/16/18 10:05 05/16/18 10:06 DC 05/16/18 10:05 600 MG Iohexol 100 ml ONCE ONCE IV 05/16/18 10:45 05/16/18 10:48 DC 05/16/18 10:56 75 ML Sodium Chloride 250 ml ONCE ONCE IV 05/16/18 10:45 05/16/18 10:48 DC 05/16/18 10:56 80 ML Vital Signs/I&O 05/16/18 08:00 Temp 98.0 Pulse 113 Resp 16 B/P (MAP) 112/80 (91) Pulse Ox 98 O2 Delivery Room Air Capillary Refill : Less Than 3 Seconds Blood Pressure Mean: 91 Departure Communication (Admissions) CT scan report shows no evidence of pathology in the pelvis. The patient continues to complain of pain and crampy pain in the pelvic area. Impression Primary Impression: dysmenorrhea Disposition: 01 HOME, SELF-CARE Condition: Stable/Unchanged Departure-Patient Inst. Decision time for Depature: 11:30 Referrals: LASHONDA DARLING MD (PCP/Family) Primary Care Physician Add. Discharge Instructions: All discharge instructions reviewed with patient and/or family. Voiced understanding. Use ibuprofen 600 mg every 6 hours as needed for cramps and discomfort. Keep appointment for colposcopy on Saturday. KAITLYN ZHOU MD May 16, 2018 09:52
[2018-05-16] MEDS ORDERED: IBUPROFEN 600 MG (MOTRIN) TAB PO ONE (10:05)
[2018-05-16 10:08] LABS: BASOPHILS % (AUTO) 0 % (0-10); EOSINOPHILS # (AUTO) 0.2 10^3/uL (0.0-0.3); EOSINOPHILS % (AUTO) 2 % (0-10); HEMATOCRIT 37 % (35-52); HEMOGLOBIN 11.7 G/DL (11.5-16.0); LYMPHOCYTES # (AUTO) 1.1 X 10^3 (1.0-4.0); LYMPHOCYTES % (AUTO) 11 % (12-44); MEAN CORPUSCULAR HEMOGLOBIN 26 PG (25-34); MEAN CORPUSCULAR HGB CONC 32 G/DL (32-36); MEAN CORPUSCULAR VOLUME 82 FL (80-99); MEAN PLATELET VOLUME 10.6 FL (7.4-10.4); MONOCYTES # (AUTO) 0.8 X 10^3 (0.0-1.0); MONOCYTES % (AUTO) 8 % (0-12); NEUTROPHILS % (AUTO) 79 % (42-75); PLATELET COUNT 301 10^3/uL (130-400); RED BLOOD COUNT 4.46 10^6/uL (4.35-5.85); RED CELL DISTRIBUTION WIDTH 15.1 % (10.0-14.5); WHITE BLOOD COUNT 10.1 10^3/uL (4.3-11.0)
[2018-05-16 10:13] LABS: BILIRUBIN,URINE NEGATIVE (NEGATIVE); CLARITY,URINE CLEAR; COLOR,URINE YELLOW; GLUCOSE, URINE (UA) NEGATIVE (NEGATIVE); KETONES,URINE NEGATIVE (NEGATIVE); LEUKOCYTE ESTERASE ,URINE NEGATIVE (NEGATIVE); NITRITE,URINE NEGATIVE (NEGATIVE); PH,URINE 7 (5-9); PROTEIN,URINE NEGATIVE (NEGATIVE); UROBILINOGEN,URINE NORMAL (NORMAL)
[2018-05-16 10:15] LABS: ALANINE AMINOTRANSFERASE 17 U/L (0-55); ALBUMIN 4.2 GM/DL (3.2-4.5); ALKALINE PHOSPHATASE 61 U/L (40-136); BILIRUBIN,TOTAL 0.4 MG/DL (0.1-1.0); BUN/CREATININE RATIO 21; CALCIUM 9.3 MG/DL (8.5-10.1); CARBON DIOXIDE 20 MMOL/L (21-32); CHLORIDE 105 MMOL/L (98-107); CREATININE SERUM 0.75 MG/DL (0.60-1.30); GFR ESTIMATED > 60; GLUCOSE 84 MG/DL (70-105); POTASSIUM 4.1 MMOL/L (3.6-5.0); SODIUM 137 MMOL/L (135-145)
[2018-05-16 10:23] LABS: BACTERIA,URINE NEGATIVE /HPF; SQUAMOUS EPITHELIAL CELL,UR 0-2 /HPF
[2018-05-16 10:26] LABS: AMPHETAMINE SCREEN, URINE NEGATIVE (NEGATIVE); BARBITURATE SCREEN URINE NEGATIVE (NEGATIVE); BENZODIAZEPINES SCREEN URINE NEGATIVE (NEGATIVE); CANNABINOID SCREEN, URINE POSITIVE (NEGATIVE); COCAINE SCREEN URINE NEGATIVE (NEGATIVE); METHADONE STAT NEGATIVE (NEGATIVE); METHAMPHETAMINE SCREEN URINE S NEGATIVE (NEGATIVE); OPIATE SCREEN URINE NEGATIVE (NEGATIVE); OXYCODONE STAT NEGATIVE (NEGATIVE); PROPOXYPHENE STAT NEGATIVE (NEGATIVE); TRICYCLIC ANTIDEPRESSANTS SCRE NEGATIVE (NEGATIVE)
[2018-05-16] MEDS ORDERED: fentaNYL INJECTION 100 MCG/2 ML AMP IVP ONE (10:45)
[2018-05-16] MEDS ORDERED: IOHEXOL 350 MG/ML 100 ML (OMNIPAQUE 350) VIAL IV ONE (10:45)
[2018-05-16] MEDS ORDERED: RECEIVED CONTRAST (Hold Metformin) IV SCH (10:45)
[2018-05-16] MEDS ORDERED: NS 250 ML (IVPB) BAG IV ONE (10:45)
--- NOTE | 2018-05-16 11:12 | Diagnostic Imaging Report ---
PROCEDURE: CT abdomen and pelvis with contrast. TECHNIQUE: Multiple contiguous axial images were obtained through the abdomen and pelvis after administration of intravenous contrast. INDICATION: Right lower quadrant pain, vaginal bleeding. I am unable to visualize the appendix in this patient. The uterus and adnexa CT appeared unremarkable however in light of the history pelvic ultrasound recommended. The urinary bladder was unremarkable. Kidneys unobstructed and normal. Liver, gallbladder, bile ducts, spleen, adrenals and pancreas negative. Aortoiliac and mesenteric vessels patent and nonaneurysmal. There is no ascites, abscess, hematoma or fluid collection. No pneumatosis or free gas. No focal inflammatory process. No abdominal wall defect or fluid collection. No hernia. IMPRESSION: No acute finding demonstrated. Nonidentification of the appendix but no focal inflammatory change found. Pelvic ultrasound recommended given the history. Dictated by: Dictated on workstation # [id number]
[2018-05-16 11:48] VITALS: BP 105/65
== END 2018-05-16 11:48 | disposition home or self-care (01) ==
LOC: EDUNIT# 07:53 → ER 07:54
DX: N94.6 Dysmenorrhea, unspecified (principal); F17.200 Nicotine dependence, unspecified, uncomplicated; Z88.1 Allergy status to other antibiotic agents; Z98.890 Other specified postprocedural states
CPT/HCPCS: 36415; 74177; 80053; 80306; 81000; 84703; 85025; 96374

== ENCOUNTER 2018-05-16 22:17 | Observation (INO) | payer MEDICAID ==
[~2018-05-16] VITALS: Ht 172.7 cm; Wt 61.2 kg
[~2018-05-16 22:17] MED LIST: NORG1TAB15
--- OUTSIDE RECORDS SUMMARY | 2018-05-16 22:24 | XMS REPORT | Continuity of Care Document ---
Demographics Preferred Language Unknown Marital Status Unknown Buddhism Affiliation Unknown Race Unknown Ethnic Group Unknown Author Author [employer] Organization [employer] Address Unknown Phone Unavailable Allergies Active Description Code Type Severity Reaction Onset Reported/Identified Relationship to Patient Clinical Status Yes DOXYCYCLINE 93461118559 Drug Allergy N/A N/A Yes DYCLONINE HCL 60413 Drug Allergy N/A N/A Yes DOXYCYCLINE [id number] Drug Allergy N/A N/A Yes doxycycline [id number] Drug Allergy Unknown N/A 05/16/2018 Medications Medication Packaging Start Date Stop Date Route Dosage Sig NYSTATIN gm 04/23/2012 EXTERNAL 30 four times daily HYDROCODONE-ACETAMINOPHEN ORAL 06/08/2013 ORAL 2020 every six hours PERMETHRIN External 06/28/2014 06/29/2014 External [id number] BACTRIM DS ORAL 02/16/2015 02/23/2015 ORAL 77 [...] Attending Type Code Diagnosis Diagnosed By 04/05/2017 LASHONDA DARLING MD Ot O20.9 HEMORRHAGE IN EARLY , UNSPECIFI 04/05/2017 LASHONDA DARLING MD R Ot Z3A.01 LESS THAN 8 WEEKS GESTATION OF 04/10/2017 LASHONDA DARLING MD Ot O20.9 HEMORRHAGE IN EARLY , UNSPECIFI 04/10/2017 LASHONDA DARLING MD Ot Z3A.01 LESS THAN 8 WEEKS GESTATION OF 04/24/2017 LASHONDA DARLING MD Ot O20.9 HEMORRHAGE IN EARLY , UNSPECIFI 04/24/2017 LASHONDA DARLING MD Ot Z3A.01 LESS THAN 8 WEEKS GESTATION OF Procedures There is no data. Results Test Result Range Complete blood count (CBC) with automated white blood cell (WBC) differential - 05/16/18 08:33 Blood leukocytes automated count (number/volume) 10.1 10*3/uL 4.3-11.0 Blood erythrocytes automated count (number/volume) 4.46 10*6/uL 4.35-5.85 Venous blood hemoglobin measurement (mass/volume) 11.7 g/dL 11.5-16.0 Blood hematocrit (volume fraction) 37 % 35-52 Automated erythrocyte mean corpuscular volume 82 [foz_us] 80-99 Automated erythrocyte mean corpuscular hemoglobin (mass per erythrocyte) 26 pg 25-34 Automated erythrocyte mean corpuscular hemoglobin concentration measurement ( mass/volume) 32 g/dL 32-36 Automated erythrocyte distribution width ratio 15.1 % 10.0-14.5 Automated blood platelet count (count/volume) 301 10*3/uL 130-400 Automated blood platelet mean volume measurement 10.6 [foz_us] 7.4-10.4 Automated blood neutrophils/100 leukocytes 79 % 42-75 Automated blood lymphocytes/100 leukocytes 11 % 12-44 Blood monocytes/100 leukocytes 8 % 0-12 Automated blood eosinophils/100 leukocytes 2 % 0-10 Automated blood basophils/100 leukocytes 0 % 0-10 Blood neutrophils automated count (number/volume) 8.0 10*3 1.8-7.8 Blood lymphocytes automated count (number/volume) 1.1 10*3 1.0-4.0 Blood monocytes automated count (number/volume) 0.8 10*3 0.0-1.0 Automated eosinophil count 0.2 10*3/uL 0.0-0.3 Automated blood basophil count (count/volume) 0.0 10*3/uL 0.0-0.1 Comprehensive metabolic panel - 05/16/18 08:33 Serum or plasma sodium measurement (moles/volume) 137 mmol/L 135-145 Serum or plasma potassium measurement (moles/volume) 4.1 mmol/L 3.6-5.0 Serum or plasma chloride measurement (moles/volume) 105 mmol/L 98-107 Carbon dioxide 20 mmol/L 21-32 Serum or plasma anion gap determination (moles/volume) 12 mmol/L 5-14 Serum or plasma urea nitrogen measurement (mass/volume) 16 mg/dL 7-18 Serum or plasma creatinine measurement (mass/volume) 0.75 mg/dL 0.60-1.30 Serum or plasma urea nitrogen/creatinine mass ratio 21 NRG Serum or plasma creatinine measurement with calculation of estimated glomerular filtration rate > NRG Serum or plasma glucose measurement (mass/volume) 84 mg/dL 70-105 Serum or plasma calcium measurement (mass/volume) 9.3 mg/dL 8.5-10.1 Serum or plasma total bilirubin measurement (mass/volume) 0.4 mg/dL 0.1-1.0 Serum or plasma alkaline phosphatase measurement (enzymatic activity/volume) 61 U/L 40-136 Serum or plasma aspartate aminotransferase measurement (enzymatic activity/ volume) 17 U/L 5-34 Serum or plasma alanine aminotransferase measurement (enzymatic activity/volume ) 17 U/L 0-55 Serum or plasma protein measurement (mass/volume) 7.0 g/dL 6.4-8.2 Serum or plasma albumin measurement (mass/volume) 4.2 g/dL 3.2-4.5 CALCIUM CORRECTED 9.1 mg/dL 8.5-10.1 Complete urinalysis with reflex to culture - 05/16/18 08:44 Urine color determination YELLOW NRG Urine clarity determination CLEAR NRG Urine pH measurement by test strip 7 5-9 Specific gravity of urine by test strip 1.010 1.016- 1.022 Urine protein assay by test strip, semi-quantitative NEGATIVE NEGATIVE Urine glucose detection by automated test strip NEGATIVE NEGATIVE Erythrocytes detection in urine sediment by light microscopy NEGATIVE NEGATIVE Urine ketones detection by automated test strip NEGATIVE NEGATIVE Urine nitrite detection by test strip NEGATIVE NEGATIVE Urine total bilirubin detection by test strip NEGATIVE NEGATIVE Urine urobilinogen measurement by automated test strip (mass/volume) NORMAL NORMAL Urine leukocyte esterase detection by dipstick NEGATIVE NEGATIVE Automated urine sediment erythrocyte count by microscopy (number/high power field) NONE NRG Automated urine sediment leukocyte count by microscopy (number/high power field ) NONE NRG Bacteria detection in urine sediment by light microscopy NEGATIVE NRG Squamous epithelial cells detection in urine sediment by light microscopy 0-2 NRG Crystals detection in urine sediment by light microscopy NONE NRG Casts detection in urine sediment by light microscopy NONE NRG Mucus detection in urine sediment by light microscopy NEGATIVE NRG Complete urinalysis with reflex to culture NO NRG Urine drug screening test - 05/16/18 08:44 Urine phencyclidine detection by screening method NEGATIVE NEGATIVE Urine benzodiazepines detection by screening method NEGATIVE NEGATIVE Urine cocaine detection NEGATIVE NEGATIVE Urine amphetamines detection by screening method NEGATIVE NEGATIVE Urine methamphetamine detection by screening method NEGATIVE NEGATIVE Urine cannabinoids detection by screening method POSITIVE NEGATIVE Urine opiates detection by screening method NEGATIVE NEGATIVE Urine barbiturates detection NEGATIVE NEGATIVE Screening urine tricyclic antidepressants detection NEGATIVE NEGATIVE Urine methadone detection by screening method NEGATIVE NEGATIVE Urine oxycodone detection NEGATIVE NEGATIVE Urine propoxyphene detection NEGATIVE NEGATIVE Encounters ACCT No. Visit Date/Time Discharge Status Pt. Type Provider Facility Loc./Unit Complaint [id number] 05/16/2018 07:54:00 05/16/2018 11:48:00 DIS Emergency ABELARDO JACOBSON, KAITLYN Arredondo [facility] ER CRAMPING;PERIOD [id number] 04/04/2017 13:19:00 04/04/2017 23:59:59 CLS Outpatient LASHONDA DARLING MD [facility] RAD O20.9 [id number] 05/16/2018 22:19:00 ACT Emergency MICHELE BENITEZ MD [facility] ER ABDOMINAL PAIN [id number] 05/15/2015 06:37:37 05/15/2015 06:37:37 DIS Outpatient [id number] 07/05/2014 15:36:52 Document Registration [id number] 06/29/2014 06:14:04 Document Registration [id number] 06/29/2014 06:14:03 Document Registration [id number] 06/29/2014 06:14:02 Document Registration [id number] 06/29/2014 06:14:01 Document Registration [id number] 06/29/2014 06:14:00 Document Registration [id number] 04/02/2014 06:02:28 Document Registration [id number] 04/28/2018 10:59:22 04/28/2018 10:59:22 DIS Outpatient [id number] 10/14/2017 16:00:00 10/14/2017 23:59:59 CLS [facility] [id number] 11/04/2017 15:46:06 Document Registration
[2018-05-16] MEDS ORDERED: LACTATED RINGERS 1,000 ML IV ONE (23:30)
[2018-05-16] MEDS ORDERED: fentaNYL INJECTION 100 MCG/2 ML AMP IVP ONE (23:30)
[2018-05-16] MEDS ORDERED: ONDANSETRON 4 MG/2 ML (SDV) Z0FRAN IV PRN (23:30)
--- NOTE | 2018-05-16 23:39 | ED Abdominal Pain ---
General Chief Complaint: Abdominal/GI Problems Stated Complaint: ABDOMINAL PAIN Nursing Triage Note: right sided abdominal pain. Sepsis Screen: Possible Sepsis Risk Source of Information: Patient, Other Exam Limitations: No Limitations History of Present Illness Date Seen by Provider: May 16, 2018 Time Seen by Provider: 23:25 Initial Comments Patient presents to the ER for the second time today with chief complaint of abdominal pain in her right lower quadrant abdomen into her suprapubic region. She says she came in this morning with similar pain and was given 50 of fentanyl and told to take 600 of ibuprofen. She said the fentanyl nor the ibuprofen really helped her pain. She's taken 2 doses of ibuprofen since going home. She said they did urine blood and found no reason for her pain. She is having nausea and vomiting twice since going home. She had a normal bowel movement yesterday. No abdominal surgeries except for 3 C-sections. No recent trauma. Patient reports she has a scheduled colposcopy on Saturday, 3 days from now. She started her period 2 days ago. She says since she started her period he 's had a lot of cramping. This is unusual for her. Review of the note from earlier today has a similar history and examination. Allergies and Home Medications Allergies Coded Allergies: doxycycline (Verified Allergy, Unknown, 05/16/18) Patient Home Medication List Home Medication List Reviewed: Yes Review of Systems Review of Systems Constitutional: No chills, No diaphoresis EENTM: No Blurred Vision, No Double Vision Respiratory: Denies Cough, Denies Shortness of Air Cardiovascular: Denies Chest Pain, Denies Lightheadedness Gastrointestinal: See HPI; Denies Abdomen Distended; Abdominal Pain; Denies Constipated, Denies Diarrhea; Nausea, Poor Fluid Intake, Vomiting Genitourinary: Denies Burning, Denies Discharge, Denies Drainage Musculoskeletal: No back pain, No joint pain Skin: No pruritus, No rash Psychiatric/Neurological: Headache; Denies Numbness Past Uremcob-Kfdbuk-Gaqwfv Hx Patient Social History Alcohol Use: Denies Use Recreational Drug Use: No Smoking Status: Current Everyday Smoker Type Used: Cigarettes 2nd Hand Smoke Exposure: Yes Recent Foreign Travel: No Contact w/Someone Who Travel: No Recent Infectious Disease Expo: No Recent Hopitalizations: No Immunizations Up To Date Tetanus Booster (TDap): Unknown Seasonal Allergies Seasonal Allergies: No Past Medical History Surgeries: Yes Section Respiratory: No Cardiac: No Neurological: No : No Last Menstrual Period: May 15, 2018 Genitourinary: No Gastrointestinal: No Musculoskeletal: No Endocrine: No HEENT: No Cancer: Yes (PRECERVICAL) Psychosocial: No Integumentary: No Blood Disorders: No Physical Exam Vital Signs Vital Signs - First Documented 05/16/18 22:40 Temp 100.0 Pulse 110 Resp 20 B/P (MAP) 129/71 (90) Pulse Ox 99 O2 Delivery Room Air Capillary Refill : Less Than 3 Seconds Height/Weight/BMI Height: 5'8.00" Weight: 135lbs. oz. 61.012744ut; BMI Method:Stated General Appearance: WD/WN, no apparent distress HEENT: PERRL/EOMI, normal ENT inspection, TMs normal, pharynx normal Neck: non-tender, full range of motion, normal inspection Respiratory: lungs clear, normal breath sounds, no respiratory distress, no accessory muscle use Cardiovascular: normal peripheral pulses, regular rate, rhythm, no edema Gastrointestinal: normal bowel sounds, no organomegaly, guarding (voluntary), rebound, tenderness (right lower quadrant as well as painful inspiration in the right upper quadrant. Diffuse tenderness to touch all 4 quadrants.), other ( psoas sign positive as well as Rovsing) Extremities: no pedal edema, normal capillary refill Neurologic/Psychiatric: alert, oriented x 3, other (anxious) Skin: normal color Focused Exam Lactate Level 05/16/18 23:45: Lactic Acid Level 0.71 Lactic Acid Level Laboratory Tests Test 05/16/18 23:45 Lactic Acid Level 0.71 MMOL/L (0.50-2.00) Progress/Results/Core Measures Results/Orders Lab Results Laboratory Tests Test 05/16/18 23:45 05/17/18 00:25 Range/Units White Blood Count 17.8 H 4.3-11.0 10^3/uL Red Blood Count 4.25 L 4.35-5.85 10^6/uL Hemoglobin 11.2 L 11.5-16.0 G/DL Hematocrit 35 35-52 % Mean Corpuscular Volume 81 80-99 FL Mean Corpuscular Hemoglobin 26 25-34 PG Mean Corpuscular Hemoglobin Concent 32 32-36 G/DL Red Cell Distribution Width 15.2 H 10.0-14.5 % Platelet Count 280 130-400 10^3/uL Mean Platelet Volume 10.1 7.4-10.4 FL Neutrophils (%) (Auto) 90 H 42-75 % Lymphocytes (%) (Auto) 5 L 12-44 % Monocytes (%) (Auto) 5 0-12 % Eosinophils (%) (Auto) 1 0-10 % Basophils (%) (Auto) 0 0-10 % Neutrophils # (Auto) 16.0 H 1.8-7.8 X 10^3 Lymphocytes # (Auto) 0.9 L 1.0-4.0 X 10^3 Monocytes # (Auto) 0.9 0.0-1.0 X 10^3 Eosinophils # (Auto) 0.1 0.0-0.3 10^3/uL Basophils # (Auto) 0.0 0.0-0.1 10^3/uL Neutrophils % (Manual) 87 % Lymphocytes % (Manual) 5 % Monocytes % (Manual) 3 % Band Neutrophils 5 % Blood Morphology Comment NORMAL Prothrombin Time 13.6 12.2-14.7 SEC INR Comment 1.0 0.8-1.4 Activated Partial Thromboplast Time 31 24-35 SEC Sodium Level 136 135-145 MMOL/L Potassium Level 3.9 3.6-5.0 MMOL/L Chloride Level 104 98-107 MMOL/L Carbon Dioxide Level 21 21-32 MMOL/L Anion Gap 11 5-14 MMOL/L Blood Urea Nitrogen 18 7-18 MG/DL Creatinine 0.78 0.60-1.30 MG/DL Estimat Glomerular Filtration Rate > 60 BUN/Creatinine Ratio 23 Glucose Level 94 70-105 MG/DL Lactic Acid Level 0.71 0.50-2.00 MMOL/L Calcium Level 9.1 8.5-10.1 MG/DL Corrected Calcium 9.1 8.5-10.1 MG/DL Total Bilirubin 0.4 0.1-1.0 MG/DL Aspartate Amino Transf (AST/SGOT) 36 H 5-34 U/L Alanine Aminotransferase (ALT/SGPT) 33 0-55 U/L Alkaline Phosphatase 64 40-136 U/L Total Protein 7.0 6.4-8.2 GM/DL Albumin 4.0 3.2-4.5 GM/DL Serum Test, Qualitative NEGATIVE NEGATIVE Urine Color MENA H Urine Clarity CLEAR Urine pH 7 5-9 Urine Specific [place] 1.010 L 1.016-1.022 Urine Protein 2+ H NEGATIVE Urine Glucose (UA) NEGATIVE NEGATIVE Urine Ketones NEGATIVE NEGATIVE Urine Nitrite NEGATIVE NEGATIVE Urine Bilirubin NEGATIVE NEGATIVE Urine Urobilinogen NORMAL NORMAL MG/DL Urine Leukocyte Esterase 1+ H NEGATIVE Urine RBC (Auto) NEGATIVE NEGATIVE Urine RBC NONE /HPF Urine WBC RARE /HPF Urine Squamous Epithelial Cells 10-25 H /HPF Urine Crystals NONE /LPF Urine Bacteria NEGATIVE /HPF Urine Casts NONE /LPF Urine Mucus NEGATIVE /LPF Urine Culture Indicated NO My Orders Orders - MICHELE BENITEZ Cbc With Automated Diff (05/16/18 23:30) Comprehensive Metabolic Panel (05/16/18 23:30) Blood Culture (05/16/18:30) Sputum Culture (05/16/18:30) Urinalysis (05/16/18:30) Urine Culture (05/16/18:30) Protime With Inr (05/16/18:30) Partial Thromboplastin Time (05/16/18:30) Saline Lock/Iv-Start (05/16/18 23:30) Saline Lock/Iv-Start (05/16/18 23:30) Vital Signs Adult Sepsis Patie Q15M (05/16/18 23:30) Ondansetron Injection (Zofran Injectio (05/16/18 23:30) O2 (05/16/18 23:30) Remove Rings In Anticipation O (05/16/18 23:30) Lactic Acid Analyzer (05/16/18 23:30) Lactated Ringers (Lr 1000 Ml Iv Solution (05/16/18 23:30) Fentanyl Injection (Sublimaze Injection (05/16/18 23:30) Hcg,Qualitative Serum (05/16/18 23:42) Manual Differential (05/16/18 23:45) Chest 1 View, Ap/Pa Only (05/17/18 00:01) Ketorolac Injection (Toradol Injection) (05/17/18 01:30) Ct Abdomen/Pelvis W (05/17/18 01:17) Diatrizoate Meglum/Sodium 37% (Gastrogra (05/17/18 01:30) Saline Lock/Iv-Start (05/17/18 01:17) Lactated Ringers (Lr 1000 Ml Iv Solution (05/17/18 01:17) Hydrocodone/Apap 5/325 Tablet (Lortab 5 (05/17/18 03:15) Medications Given in ED Current Medications Medications Dose Ordered Sig/Anoop Route Start Time Stop Time Status Last Admin Dose Admin Fentanyl Citrate 75 mcg ONCE ONCE IVP 05/16/18 23:30 05/16/18 23:36 DC 05/16/18 23:48 75 MCG Ketorolac Tromethamine 30 mg ONCE ONCE IVP 05/17/18 01:30 05/17/18 01:31 DC 05/17/18 01:36 30 MG Lactated Ringer's 1,000 ml @ 0 mls/hr Q0M ONCE IV 05/16/18 23:30 05/16/18 23:36 DC 05/16/18 23:47 0 MLS/HR Lactated Ringer's 1,000 ml @ 0 mls/hr Q0M ONCE IV 05/17/18 01:17 05/17/18 01:19 DC 05/17/18 01:35 0 MLS/HR Ondansetron HCl 4 mg PRN PRN IV 05/16/18 23:30 05/16/18 23:48 DC 05/16/18 23:47 4 MG Vital Signs/I&O 05/16/18 05/16/18 22:40 23:48 Temp 100.0 100.0 Pulse 110 Resp 20 B/P (MAP) 129/71 (90) Pulse Ox 99 O2 Delivery Room Air Blood Pressure Mean: 90 Progress Progress Note #1: Time: 23:40 Progress Note Patient is on her period or she could be having an ectopic. Urine test from this morning was negative. Repeat urine and labs and a septic workup given her tachycardia which could just be due to her pain. Fentanyl, Zofran and fluids and then we'll serially examine her abdomen. She has pain all over her belly as well as difficult to determine what's causing her symptoms. Review the urine drug screen was negative for everything except for cannabis this morning. Progress Note #2: Time: 01:20 Progress Note The patient's pain was helped moderately with the fentanyl and she feels drowsy and her nausea is gone. She still feeling quite a bit of pain calls it moderate. We are going to give her some Toradol and we've reviewed her labs. Urine is clean but the white count went from 10,000 up to almost 18,000 in less than a day. This is an ominous sign and so a review of the previous CT scan I was not able to appreciate the appendix nor did I appreciate any secondary signs of free fluid down in the pelvis. We do not have ultrasound available. We gave her the option of looking again at the abdomen pelvis with a oral and IV contrast versus sending her down the road to [place] for ultrasound. She said 3 weeks ago she was tested for STDs by the [employer] who is getting her Pap smear done. She was told her a CT chest were negative. She's never had an STD. She's in a monogamous relationship but she has had sex since that time. Pelvic inflammatory disease is possible but she's not having any discharge. We are going to treat her with Zosyn and another liter of lactated Ringer's which would cover PID versus hot appendix or colitis. She is in agreement with this plan and would prefer not to have to travel she doesn't have to. Diagnostic Imaging Diagonstic Imaging: Xray Plain Films/CT/US/NM/MRI: chest (1v) Comments Unremarkable chest x-ray with no acute cardiopulmonary processes noted. Reviewed: Reviewed by Me Diagonstic Imaging: CT (with IV and oral contrast) Plain Films/CT/US/NM/MRI: abdomen, pelvis Reviewed: Reviewed [place] Study, Reviewed by Me Departure Communication (Admissions) Time/Spoke to Admitting Phy: 03:00 Discussed case lab imaging findings with Dr. Loya and he agrees with putting the patient on observation with IV fluids, Flagyl, Cipro, pain and nausea medicines and he'll see her in the morning. Impression Primary Impression: Gastroenteritis Additional Impressions: Regional ileitis of small intestine Qualified Codes: K50.00 - Crohn's disease of small intestine without complications Intractable nausea and vomiting Qualified Codes: R11.2 - Nausea with vomiting, unspecified Intractable abdominal pain Disposition: ADMITTED INPATIENT Condition: Stable Admissions Decision to Admit Reason: Admit from ER (General) Decision to Admit/Date: May 17, 2018 Time/Decision to Admit Time: 03:04 Departure-Patient Inst. Referrals: NO,LOCAL PHYSICIAN (PCP/Family) Primary Care Physician MICHELE BENITEZ May 16, 2018 23:39
[2018-05-17 00:03] LABS: BASOPHILS % (AUTO) 0 % (0-10); EOSINOPHILS # (AUTO) 0.1 10^3/uL (0.0-0.3); EOSINOPHILS % (AUTO) 1 % (0-10); HEMATOCRIT 35 % (35-52); HEMOGLOBIN 11.2 G/DL (11.5-16.0); LYMPHOCYTES # (AUTO) 0.9 X 10^3 (1.0-4.0); LYMPHOCYTES % (AUTO) 5 % (12-44); MEAN CORPUSCULAR HEMOGLOBIN 26 PG (25-34); MEAN CORPUSCULAR HGB CONC 32 G/DL (32-36); MEAN CORPUSCULAR VOLUME 81 FL (80-99); MEAN PLATELET VOLUME 10.1 FL (7.4-10.4); MONOCYTES # (AUTO) 0.9 X 10^3 (0.0-1.0); MONOCYTES % (AUTO) 5 % (0-12); NEUTROPHILS % (AUTO) 90 % (42-75); PLATELET COUNT 280 10^3/uL (130-400); RED BLOOD COUNT 4.25 10^6/uL (4.35-5.85); RED CELL DISTRIBUTION WIDTH 15.2 % (10.0-14.5); WHITE BLOOD COUNT 17.8 10^3/uL (4.3-11.0)
[2018-05-17 00:15] LABS: PROTHROMBIN TIME PATIENT 13.6 SEC (12.2-14.7)
[2018-05-17 00:22] LABS: ALANINE AMINOTRANSFERASE 33 U/L (0-55); ALKALINE PHOSPHATASE 64 U/L (40-136); BILIRUBIN,TOTAL 0.4 MG/DL (0.1-1.0); BUN/CREATININE RATIO 23; CALCIUM 9.1 MG/DL (8.5-10.1); CARBON DIOXIDE 21 MMOL/L (21-32); CHLORIDE 104 MMOL/L (98-107); CREATININE SERUM 0.78 MG/DL (0.60-1.30); GFR ESTIMATED > 60; GLUCOSE 94 MG/DL (70-105); POTASSIUM 3.9 MMOL/L (3.6-5.0); SODIUM 136 MMOL/L (135-145)
[2018-05-17 00:32] LABS: BILIRUBIN,URINE NEGATIVE (NEGATIVE); CLARITY,URINE CLEAR; COLOR,URINE AMBER; GLUCOSE, URINE (UA) NEGATIVE (NEGATIVE); KETONES,URINE NEGATIVE (NEGATIVE); LEUKOCYTE ESTERASE ,URINE 1+ (NEGATIVE); NITRITE,URINE NEGATIVE (NEGATIVE); PH,URINE 7 (5-9); PROTEIN,URINE 2+ (NEGATIVE); UROBILINOGEN,URINE NORMAL (NORMAL)
[2018-05-17 00:35] LABS: BAND NEUTROPHILS 5 %; LYMPHOCYTES % (MANUAL) 5 %; MONOCYTES % (MANUAL) 3 %; NEUTROPHILS % (MANUAL) 87 %; RBC MORPH NORMAL
[2018-05-17 00:41] LABS: BACTERIA,URINE NEGATIVE /HPF; WBC,URINE RARE /HPF
[2018-05-17] MEDS ORDERED: LACTATED RINGERS 1,000 ML IV ONE (01:17)
[2018-05-17] MEDS ORDERED: KETOROLAC 30 MG/ML VIAL IVP ONE (01:30)
[2018-05-17] MEDS ORDERED: DIATRIZOATE MEGLUM/SODIUM 37% 120 ML (GASTROGRAFIN) PO ONE (01:30)
[2018-05-17] MEDS ORDERED: HYDROcodone/APAP 5 MG/325 MG (LORTAB) TAB PO ONE (03:15)
--- OUTSIDE RECORDS SUMMARY | 2018-05-17 03:20 | XMS REPORT | Continuity of Care Document ---
Demographics Preferred Language Unknown Marital Status Unknown Gnosticism Affiliation Unknown Race Unknown Ethnic Group Unknown Author Author [facility] Organization [facility] Address Unknown Phone Unavailable Allergies Active Description Code Type Severity Reaction Onset Reported/Identified Relationship to Patient Clinical Status Yes DOXYCYCLINE [id number] Drug Allergy N/A N/A [place]CLONINE HCL 43101 Drug Allergy N/A N/A Yes DOXYCYCLINE [id number] Drug Allergy N/A N/A Yes doxycycline [id number] Drug Allergy Unknown N/A 05/16/2018 Medications Medication Packaging Start Date Stop Date Route Dosage Sig NYSTATIN gm 04/23/2012 EXTERNAL 30 four times daily HYDROCODONE-ACETAMINOPHEN ORAL 06/08/2013 ORAL 2020 every six hours PERMETHRIN External 06/28/2014 06/29/2014 External 901337 BACTRIM DS ORAL 02/16/2015 02/23/2015 ORAL 77 [...] EARLY , UNSPECIFI 04/10/2017 LASHONDA DARLING MD R Ot Z3A.01 LESS THAN 8 WEEKS GESTATION OF 04/24/2017 LASHONDA DARLING MD Ot O20.9 HEMORRHAGE IN EARLY , UNSPECIFI 04/24/2017 LASHONDA DARLING MD R Ot Z3A.01 LESS THAN 8 WEEKS GESTATION OF 05/17/2018 LASHONDA DARLING MD R Ot O20.9 HEMORRHAGE IN EARLY , UNSPECIFI 05/17/2018 LASHONDA DARLING MD R Ot Z3A.01 LESS [...] NEGATIVE NEGATIVE Urine propoxyphene detection NEGATIVE NEGATIVE Complete blood count (CBC) with automated white blood cell (WBC) differential - 05/16/18 23:45 Blood leukocytes automated count (number/volume) 17.8 10*3/uL 4.3-11.0 Blood erythrocytes automated count (number/volume) 4.25 10*6/uL 4.35-5.85 Venous blood hemoglobin measurement (mass/volume) 11.2 g/dL 11.5-16.0 Blood hematocrit (volume fraction) 35 % 35-52 Automated erythrocyte mean corpuscular volume 81 [foz_us] 80-99 Automated erythrocyte mean corpuscular hemoglobin (mass per erythrocyte) 26 pg 25-34 Automated erythrocyte mean corpuscular hemoglobin concentration measurement ( mass/volume) 32 g/dL 32-36 Automated erythrocyte distribution width ratio 15.2 % 10.0-14.5 Automated blood platelet count (count/volume) 280 10*3/uL 130-400 Automated blood platelet mean volume measurement 10.1 [foz_us] 7.4-10.4 Automated blood neutrophils/100 leukocytes 90 % 42-75 Automated blood lymphocytes/100 leukocytes 5 % 12-44 Blood monocytes/100 leukocytes 5 % 0-12 Automated blood eosinophils/100 leukocytes 1 % 0-10 Automated blood basophils/100 leukocytes 0 % 0-10 Blood neutrophils automated count (number/volume) 16.0 10*3 1.8-7.8 Blood lymphocytes automated count (number/volume) 0.9 10*3 1.0-4.0 Blood monocytes automated count (number/volume) 0.9 10*3 0.0-1.0 Automated eosinophil count 0.1 10*3/uL 0.0-0.3 Automated blood basophil count (count/volume) 0.0 10*3/uL 0.0-0.1 Serum or plasma choriogonadotropin ( test) detection - 05/16/18 23:45 Serum or plasma choriogonadotropin ( test) detection NEGATIVE NEGATIVE Blood lactic acid measurement (moles/volume) - 05/16/18 23:45 Blood lactic acid measurement (moles/volume) 0.71 mmol/L 0.50-2.00 PT panel in platelet poor plasma by coagulation assay - 05/16/18 23:45 Prothrombin time (PT) in platelet poor plasma by coagulation assay 13.6 s 12.2-14.7 INR in platelet poor plasma or blood by coagulation assay 1.0 0.8-1.4 Activated partial thromboplastin time (aPTT) in platelet poor plasma bycoagulation assay - 05/16/18 23:45 Activated partial thromboplastin time (aPTT) in platelet poor plasma bycoagulation assay 31 s 24-35 Comprehensive metabolic panel - 05/16/18 23:45 Serum or plasma sodium measurement (moles/volume) 136 mmol/L 135-145 Serum or plasma potassium measurement (moles/volume) 3.9 mmol/L 3.6-5.0 Serum or plasma chloride measurement (moles/volume) 104 mmol/L 98-107 Carbon dioxide 21 mmol/L 21-32 Serum or plasma anion gap determination (moles/volume) 11 mmol/L 5-14 Serum or plasma urea nitrogen measurement (mass/volume) 18 mg/dL 7-18 Serum or plasma creatinine measurement (mass/volume) 0.78 mg/dL 0.60-1.30 Serum or plasma urea nitrogen/creatinine mass ratio 23 NRG Serum or plasma creatinine measurement with calculation of estimated glomerular filtration rate > NRG Serum or plasma glucose measurement (mass/volume) 94 mg/dL 70-105 Serum or plasma calcium measurement (mass/volume) 9.1 mg/dL 8.5-10.1 Serum or plasma total bilirubin measurement (mass/volume) 0.4 mg/dL 0.1-1.0 Serum or plasma alkaline phosphatase measurement (enzymatic activity/volume) 64 U/L 40-136 Serum or plasma aspartate aminotransferase measurement (enzymatic activity/ volume) 36 U/L 5-34 Serum or plasma alanine aminotransferase measurement (enzymatic activity/volume ) 33 U/L 0-55 Serum or plasma protein measurement (mass/volume) 7.0 g/dL 6.4-8.2 Serum or plasma albumin measurement (mass/volume) 4.0 g/dL 3.2-4.5 CALCIUM CORRECTED 9.1 mg/dL 8.5-10.1 Blood manual differential performed detection - 05/16/18 23:45 Blood monocytes/100 leukocytes 3 % NRG Manual blood segmented neutrophils/100 leukocytes 87 % NRG Blood band neutrophils/100 leukocytes 5 % NRG Manual blood lymphocytes/100 leukocytes 5 % NRG Blood erythrocyte morphology finding identification NORMAL NRG Complete urinalysis with reflex to culture - 05/17/18 00:25 Urine color determination MENA NRG Urine clarity determination CLEAR NRG Urine pH measurement by test strip 7 5-9 Specific gravity of urine by test strip 1.010 1.016- 1.022 Urine protein assay by test strip, semi-quantitative 2+ NEGATIVE Urine glucose detection by automated test strip NEGATIVE NEGATIVE Erythrocytes detection in urine sediment by light microscopy NEGATIVE NEGATIVE Urine ketones detection by automated test strip NEGATIVE NEGATIVE Urine nitrite detection by test strip NEGATIVE NEGATIVE Urine total bilirubin detection by test strip NEGATIVE NEGATIVE Urine urobilinogen measurement by automated test strip (mass/volume) NORMAL NORMAL Urine leukocyte esterase detection by dipstick 1+ NEGATIVE Automated urine sediment erythrocyte count by microscopy (number/high power field) NONE NRG Automated urine sediment leukocyte count by microscopy (number/high power field ) RARE NRG Bacteria detection in urine sediment by light microscopy NEGATIVE NRG Squamous epithelial cells detection in urine sediment by light microscopy 10-25 NRG Crystals detection in urine sediment by light microscopy NONE NRG Casts detection in urine sediment by light microscopy NONE NRG Mucus detection in urine sediment by light microscopy NEGATIVE NRG Complete urinalysis with reflex to culture NO NRG Encounters ACCT No. Visit Date/Time Discharge Status Pt. Type Provider Facility Loc./Unit Complaint [id number] 05/16/2018 07:54:00 05/16/2018 11:48:00 DIS Emergency ABELARDO JACOBSON, KAITLYN Arredondo [facility] ER CRAMPING;PERIOD [id number] 04/04/2017 13:19:00 04/04/2017 23:59:59 CLS Outpatient LASHONDA DARLING MD [facility] RAD O20.9 [id number] 05/17/2018 03:07:00 ACT Inpatient KVNG HAMILTON MD [facility] 4TH GASTROINTERITIS, INTRACTABLE PAIN,N/V [id number] 05/15/2015 06:37:37 05/15/2015 06:37:37 DIS Outpatient [id number] 07/05/2014 15:36:52 Document Registration [id number] 06/29/2014 06:14:04 Document Registration [id number] 06/29/2014 06:14:03 Document Registration [id number] 06/29/2014 06:14:02 Document Registration [id number] 06/29/2014 06:14:01 Document Registration [id number] 06/29/2014 06:14:00 Document Registration [id number] 04/02/2014 06:02:28 Document Registration [id number] 04/28/2018 10:59:22 04/28/2018 10:59:22 DIS Outpatient [facility] [id number] 10/14/2017 16:00:00 10/14/2017 23:59:59 CLS Outpatient ANDRES GARCIA [facility] [id number] 11/04/2017 15:46:06 Document Registration
[2018-05-17 04:00] VITALS: BP 88/50
[2018-05-17] MEDS ORDERED: HYDROcodone/APAP 5 MG/325 MG (LORTAB) TAB PO PRN (04:30)
[2018-05-17] MEDS ORDERED: ONDANSETRON 4 MG/2 ML (SDV) Z0FRAN IV PRN (04:30)
[2018-05-17] MEDS ORDERED: PROMETHAZINE 25 MG (PHENERGAN) TAB PO PRN (04:45)
[2018-05-17] MEDS: LACTATED RINGERS 1,000 ML IV SCH ×3 (05:04→22:16)
[2018-05-17] MEDS: CIPROFLOXACIN 400 MG/D5W 200 ML (PRE-MIX) IV SCH ×2 (05:04→17:13)
[2018-05-17] MEDS: metroNIDAZOLE 500 MG/100 ML IVPB (PRE-MIX) IV SCH ×3 (05:04→20:00)
[2018-05-17] MEDS: HYDROcodone/APAP 10 MG/325 MG (LORTAB) TAB PO PRN ×2 (05:24→20:00)
[2018-05-17 05:31] LABS: BASOPHILS % (AUTO) 0 % (0-10); EOSINOPHILS # (AUTO) 0.1 10^3/uL (0.0-0.3); EOSINOPHILS % (AUTO) 0 % (0-10); HEMATOCRIT 32 % (35-52); HEMOGLOBIN 10.3 G/DL (11.5-16.0); LYMPHOCYTES # (AUTO) 1.2 X 10^3 (1.0-4.0); LYMPHOCYTES % (AUTO) 8 % (12-44); MEAN CORPUSCULAR HEMOGLOBIN 26 PG (25-34); MEAN CORPUSCULAR HGB CONC 32 G/DL (32-36); MEAN CORPUSCULAR VOLUME 82 FL (80-99); MEAN PLATELET VOLUME 9.7 FL (7.4-10.4); MONOCYTES # (AUTO) 0.7 X 10^3 (0.0-1.0); MONOCYTES % (AUTO) 5 % (0-12); NEUTROPHILS # (AUTO) 13.3 X 10^3 (1.8-7.8); NEUTROPHILS % (AUTO) 87 % (42-75); PLATELET COUNT 259 10^3/uL (130-400); RED BLOOD COUNT 3.92 10^6/uL (4.35-5.85); RED CELL DISTRIBUTION WIDTH 15.5 % (10.0-14.5); WHITE BLOOD COUNT 15.2 10^3/uL (4.3-11.0)
[2018-05-17 05:50] LABS: ALANINE AMINOTRANSFERASE 33 U/L (0-55); ALBUMIN 3.5 GM/DL (3.2-4.5); ALKALINE PHOSPHATASE 59 U/L (40-136); BILIRUBIN,TOTAL 0.4 MG/DL (0.1-1.0); BUN/CREATININE RATIO 16; CALCIUM 8.9 MG/DL (8.5-10.1); CARBON DIOXIDE 22 MMOL/L (21-32); CHLORIDE 106 MMOL/L (98-107); CREATININE SERUM 0.73 MG/DL (0.60-1.30); GFR ESTIMATED > 60; GLUCOSE 112 MG/DL (70-105); POTASSIUM 3.7 MMOL/L (3.6-5.0); SODIUM 137 MMOL/L (135-145)
--- NOTE | 2018-05-17 06:21 | Diagnostic Imaging Report ---
PROCEDURE: CT abdomen and pelvis with contrast. TECHNIQUE: Multiple contiguous axial images were obtained through the abdomen and pelvis after administration of intravenous contrast. Indication: Generalized abdominal pain. Comparison: 05/16/2018. Discussion: The lung bases are well-aerated. Normal heart size. No pleural or pericardial fluid. The liver, gallbladder, pancreas, stomach, spleen, adrenal glands are unremarkable. No renal stone or hydronephrosis. The uterus and urinary bladder are unremarkable. No obstruction, pneumatosis, or pneumoperitoneum. Mild constipation. Mild small bowel wall thickening without obstruction. Findings could be seen with mild ileus or enteritis. No osseous abnormality. There is questionable venous congestion and possible early inflammatory changes noted within the right adnexa which is stable and nonspecific. There is a somewhat dense tubular structure noted extending from the right adnexa anteriorly. This is nonspecific and could represent an abnormal appendix or early changes of inflammation with the right fallopian tube. Recommend clinical correlation. This tubular structure is more evident on today's exam than yesterday's exam. Findings were not discussed on the preliminary report. Impression: 1. Mild venous congestion and early inflammatory changes are noted within the right adnexa with a nonspecific tubular structure noted extending anteriorly. This is in the region of the cecum though this does not definitely represent the appendix. Early appendicitis cannot be excluded as an otherwise normal appendix is not visualized. Other etiologies would include early pelvic inflammatory disease. Recommend clinical correlation. Dictated by: Dictated on workstation # [id number]
--- NOTE | 2018-05-17 06:43 | Diagnostic Imaging Report ---
Indication: Right-sided chest and abdominal pain with nausea and vomiting. Comparison: None. Discussion: Single portable upright view of the chest was obtained. The heart and lungs are normal. No osseous abnormality. Impression: 1. Negative chest. Dictated by: Dictated on workstation # [id number]
[2018-05-17] MEDS ORDERED: FLU QUADRIvalent (5+ YOA) 2018-2019 (AFLURIA) 0.5 ML IM ONE (07:15)
[2018-05-17 08:00] VITALS: BP 97/53
[2018-05-17] MEDS: fentaNYL INJECTION 100 MCG/2 ML AMP IV PRN (08:16)
[2018-05-17] MEDS: KETOROLAC 15 MG/ML VIAL IV PRN ×2 (11:13→15:48)
[2018-05-17 12:00] VITALS: BP 98/54
--- NOTE | 2018-05-17 12:48 | HISTORY AND PHYSICAL ---
DATE OF SERVICE: ATTENDING PRIMARY CARE PHYSICIAN: Dr. Molina in [place], [place]. HISTORY OF PRESENT ILLNESS: The patient is a 32-year-old female who presented to the Emergency Department with right lower abdominal quadrant pain. She reports that the pain had started one day previous and was seen and evaluated in the Emergency Department where a CT scan was performed, which did not show any abnormalities and her white count was normal. She reports that the pain persisted and worsened over time. Upon second workup, she was found to have a leukocytosis of 17.8. Her qualitative hCG was negative. CT scan was once again performed which did show significant amount of stool within the colon. The appendix was not well visualized. Upon further questioning, she does report having a new sexual partner in the past several days. 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 PAST MEDICAL HISTORY: None. PAST SURGICAL HISTORY: section x3. ALLERGIES: DOXYCYCLINE. MEDICATIONS: None. SOCIAL HISTORY: Positive smoke, 15 pack years. Negative alcohol. FAMILY HISTORY: Mother some form of cancer. REVIEW OF SYSTEMS: Well-nourished female, currently guarded secondary to the abdominal pain. She is not experiencing any shortness of breath or difficulty breathing. Since admission, she has not had any fever, no chills. She does not report any nausea, no vomiting at this time and does feel hungry. She states that she does have a bowel movement on a daily basis. Does not report any major issues with constipation as well as no red blood per rectum nor any dark tarry stools. No recent inadvertent weight loss. She is sexually active with a new partner. PHYSICAL EXAMINATION: VITAL SIGNS: Temperature is 97.3, blood pressure 97/53, pulse 89, respirations 16, and pulse ox 96% on room air. CHEST: Clear. Good breath sounds bilaterally. HEART: Regular, no murmurs. EXTREMITIES: No lower extremity edema, negative Homans sign. HEENT: No scleral icterus. NECK: No cervical lymphadenopathy. ABDOMEN: Soft, nondistended. There is pain in the right lower abdominal quadrant upon palpation with voluntary guarding. There are no palpable masses. SKIN: Warm, dry. LABORATORY DATA: WBC is 15.2, hemoglobin 10.3, hematocrit 32, and platelets 259. Urine, 1+ leukocyte esterase. ASSESSMENT AND PLAN: A 32-year-old female with right lower abdominal quadrant pain. This may represent a pelvic inflammatory disease versus a terminal ileitis versus an undiagnosed inflammatory bowel disease as well as possibility of appendicitis. We will continue with IV hydration as well as physical examination and laboratory work. If she has persistence or worsening of pain, we will proceed with a diagnostic laparoscopy. Job ID: [id number] DocumentID: [id number] Dictated Date: 05/17/2018 12:21:44 Supervisor Plate Pasting Date: 05/17/2018 12:47:44 Dictated By: KVNG HAMILTON MD
[2018-05-17 16:35] VITALS: BP 104/57
[2018-05-17 20:00] VITALS: BP 98/53
[2018-05-17] MEDS: POLYETHYLENE GLYCOL 17 GM (MIRALAX) PACK PO SCH (20:01)
[2018-05-18] VITALS: BP 101/53
[2018-05-18] MEDS: KETOROLAC 15 MG/ML VIAL IV PRN (00:30)
[2018-05-18 04:00] VITALS: BP 97/55
[2018-05-18] MEDS: metroNIDAZOLE 500 MG/100 ML IVPB (PRE-MIX) IV SCH (04:20)
[2018-05-18] MEDS: LACTATED RINGERS 1,000 ML IV SCH ×2 (04:22→07:35)
[2018-05-18] MEDS: CIPROFLOXACIN 400 MG/D5W 200 ML (PRE-MIX) IV SCH (05:39)
[2018-05-18 07:08] LABS: HEMOGLOBIN 9.3 G/DL (11.5-16.0); MEAN PLATELET VOLUME 9.2 FL (7.4-10.4); RED BLOOD COUNT 3.58 10^6/uL (4.35-5.85); WHITE BLOOD COUNT 5.6 10^3/uL (4.3-11.0)
[2018-05-18 07:30] VITALS: BP 111/56
[2018-05-18] MEDS: fentaNYL INJECTION 100 MCG/2 ML AMP IV PRN (07:35)
[2018-05-18] MEDS: POLYETHYLENE GLYCOL 17 GM (MIRALAX) PACK PO SCH (09:37)
--- NOTE | 2018-05-18 10:24 | Progress Note (SOAP) ---
Subjective Date Seen by a Provider: May 18, 2018 Time Seen by a Provider: 10:20 Subjective/Events-last exam doing better. improved abd pain control. no fever/chills. tolerating diet. WBC normal. suspect PID responding to abx. Focused Exam Lactate Level 05/16/18 23:45: Lactic Acid Level 0.71 Objective Exam Vital Signs Date Time Temp Pulse Resp B/P (MAP) Pulse Ox O2 Delivery O2 Flow Rate FiO2 05/18/18 08:45 Room Air 05/18/18 07:30 98.3 73 18 111/56 (74) 97 Room Air 05/18/18 04:00 98.9 77 20 97/55 (69) 97 Room Air 05/18/18 00:00 99.2 95 20 101/53 (69) 98 Room Air 05/17/18 20:00 98.6 89 16 98/53 (68) 100 Room Air 05/17/18 20:00 Room Air 05/17/18 16:35 98.7 86 18 104/57 (73) 98 Room Air 05/17/18 16:20 98.7 05/17/18 12:00 97.5 76 16 98/54 (69) 98 Room Air I & O 05/18/18 07:00 Intake Total 4210 ml Output Total 700 ml Balance 3510 ml Capillary Refill : Less Than 3 Seconds General Appearance: No Apparent Distress HEENT: PERRL/EOMI Neck: Full Range of Motion Respiratory: Chest Non Tender, Lungs Clear, Normal Breath Sounds Cardiovascular: Regular Rate, Rhythm Gastrointestinal: normal bowel sounds, soft, tenderness Extremity: Normal Capillary Refill Neurologic/Psychiatric: Alert, Oriented x3 Skin: Normal Color Lymphatic: No Adenopathy Results Lab Laboratory Tests 05/17/18 12:43: 05/18/18 07:00: White Blood Count 5.6, Red Blood Count 3.58L, Hemoglobin 9.3L, Hematocrit 30L, Mean Corpuscular Volume 83, Mean Corpuscular Hemoglobin 26, Mean Corpuscular Hemoglobin Concent 31L, Red Cell Distribution Width 15.0H, Platelet Count 206, Mean Platelet Volume 9.2 Microbiology 05/17/18 Blood Culture - Preliminary, Resulted No growth 05/17/18 Genital Culture - Preliminary, Resulted 05/17/18 Urine Culture - Final, Complete See Comments Assessment/Plan Assessment/Plan Assess & Plan/Chief Complaint abdominal pain with PID. responding well to abx. continue abx with levaquin and flagyl for 14 days. Clinical Quality Measures DVT/VTE Risk/Contraindication: RFS Level Per Nursing on Admit: 1=Low/No VTE PPX KVNG HAMILTON MD May 18, 2018 10:24 am
[2018-05-18] MEDS ORDERED: METR500T PO (10:52)
[2018-05-18] MEDS ORDERED: LEVO500T2 PO (10:52)
[2018-05-18] MEDS ORDERED: HYDR-34 PO (10:52)
--- NOTE | 2018-05-18 10:57 | Discharge Inst-Surgical ---
D/C Lap Instructions-KIDO New, Converted, or Re-Newed RX: RX on Chart Follow Up with [facility] (states already has appointment) Activity as tolerated levaquin 14 days flagyl BID 14 days Regular Diet Symptoms to Report: Fever over 101 degree F, Nausea/Vomiting Infection Signs and Symptoms to report: Increased redness, Foul odor of wound, Increased drainage Bathing instructions: May shower Operative Area Clean/Dry; Keep incision clean/dry If any problems/questions: Contact your physician or go to Emergency Room KVNG HAMILTON MD May 18, 2018 10:57 am
[2018-05-18] MEDS: HYDROcodone/APAP 10 MG/325 MG (LORTAB) TAB PO PRN (11:39)
== END 2018-05-18 10:52 | disposition home or self-care (01) ==
LOC: EDUNIT# 22:17 → ER 22:19 → UNDOADMOB 05-17 03:07 → 4TH 05-17 03:07 → UNDODISOB 05-18 12:40
PROVIDERS: ADMIT Surgery; ATTEND Surgery
DX: N73.9 Female pelvic inflammatory disease, unspecified (principal); F17.210 Nicotine dependence, cigarettes, uncomplicated
CPT/HCPCS: 36415; 71045; 74177; 80053; 81000; 83605; 84703; 85007; 85025; 85027; 85610; 85730; 87040; 87070; 87077; 87081; 87088; 87205; 87491; 87591; 96361; 96374; 96375; G0378

== ENCOUNTER 2018-05-20 15:28 | Outpatient (CLI) | payer MEDICAID ==
[~2018-05-20] VITALS: Ht 172.7 cm; Wt 61.2 kg
[~2018-05-20 15:28] MED LIST changes: +HYDR-34 PO; +LEVO500T2 PO; +METR500T PO
[2018-05-20 15:42] VITALS: BP 114/89
[2018-05-20] MEDS ORDERED: cefTRIAXone 250 MG/ML vial (IM ONLY) IM ONE (15:45)
[2018-05-20] MEDS ORDERED: LIDOCAINE 1% INJ 20 ML 20 ML VIAL IJ ONE (15:45)
--- NOTE | 2018-05-22 12:00 | Physician Query-Final Dx ---
ALLIE CACERES 05/22/18 1200: Clinic Account Progress/Dx Physician Query: Please give a diagnosis for the Rocephin treatment thank you Date of Service May 20, 2018 at 15:28 DARLENE SHELBY [employer]GATE OPERATOR 05/23/18 0943: Clinic Account Progress/Dx Physician Query: Please give diagnosis DIAGNOSIS: Diagnosis Gonorrhea ALLIE CACERES May 22, 2018 12:00 DARLENE SHELBY [employer] HEADGATE OPERATOR May 23, 2018 09:43
== END 2018-05-21 06:07 | disposition home or self-care (01) ==
LOC: SDC 15:28
PROVIDERS: ATTEND Nurse Practitioner Family
DX: A54.9 Gonococcal infection, unspecified (principal)
CPT/HCPCS: 96372

== ENCOUNTER 2018-08-07 20:42 | Emergency (ER) | payer MEDICAID | END 2018-08-07 21:59 | disposition home or self-care (01) | LOC: ER 20:42 ==

== ENCOUNTER 2018-08-08 21:12 | Emergency (ER) | payer MEDICAID | END 2018-08-08 21:40 | disposition home or self-care (01) | LOC: ER 21:12 ==

== ENCOUNTER 2018-09-10 19:03 | Emergency (ER) | payer MEDICAID ==
[~2018-09-10] VITALS: Ht 172.7 cm; Wt 65.8 kg
[~2018-09-10 19:03] MED LIST changes: +AZIT250T12 PO; +METH-313 PO; +NAPR-1071 PO; +PRD20T PO
[2018-09-10] MEDS ORDERED: AMOX-358 PO (19:40)
--- NOTE | 2018-09-10 19:40 | ED EENT ---
History of Present Illness General Chief Complaint: Dental Problems/Pain Stated Complaint: DENTAL PAIN Nursing Triage Note: PT PRESENTS TO ED WITH COMPLAINTS OF DENTAL PAIN X SEVERAL MONTHS BUT WORSE TODAY. PT REPORTS SHE HAS AN APPOINTMENT TO SEE A DENTIST ON September. Source: patient Exam Limitations: no limitations History of Present Illness Date Seen by Provider: Sep 10, 2018 Time Seen by Provider: 19:30 Initial Comments 32-year-old female who presents to the emergency room with complaints of dental pain for 2 years but has become worse the last couple of days. She has an appointment to see her dentist on October 07 to have all of her teeth extracted and to be fitted for dentures. She reports taking naproxen at home without relief. Allergies and Home Medications Allergies Coded Allergies: doxycycline (Verified Allergy, Unknown, 05/16/18) Home Medications Azithromycin 250 Mg Tablet, 250 MG PO DAILY Prescribed by: VINCENT GOVEA on 08/07/182123 Methocarbamol 750 Mg Tablet, 750 MG PO Q4H PRN for PAIN-MODERATE TO SEVERE Prescribed by: VINCENT GOVEA on 08/08/182125 Naproxen 500 Mg Tablet, 500 MG PO BID Prescribed by: VINCENT GOVEA on 08/08/182125 Prednisone 20 Mg Tab, 40 MG PO DAILY Prescribed by: VINCENT GOVEA on 08/07/182123 Past Fczxwam-Yooahb-Nqaxvz Hx Patient Social History Alcohol Use: Denies Use Recreational Drug Use: No Smoking Status: Current Everyday Smoker Type Used: Cigarettes 2nd Hand Smoke Exposure: Yes Recent Foreign Travel: No Contact w/Someone Who Travel: No Recent Infectious Disease Expo: No Recent Hopitalizations: No Physical Abuse: No Sexual Abuse: No Mistreated: No Fear: No Immunizations Up To Date Tetanus Booster (TDap): Unknown Seasonal Allergies Seasonal Allergies: No Past Medical History Surgeries: Yes Section Respiratory: No Cardiac: No Neurological: No Genitourinary: No Gastrointestinal: No Musculoskeletal: No Endocrine: No HEENT: No Cancer: Yes (PRECERVICAL) Psychosocial: No Integumentary: No Blood Disorders: No Physical Exam Vital Signs Vital Signs - First Documented 09/10/18 19:30 Temp 97.5 Pulse 77 Resp 20 B/P (MAP) 97/75 (82) Pulse Ox 97 Height, Weight, BMI Height: 5'8.00" Weight: 145lbs. 0.0oz. 65.946845hz; 20.5 BMI Method:Stated Progress/Results/Core Measures Results/Orders My Orders Orders - VICKY BECKHAM Amoxicillin/Clavulanate Tablet (Augmenti (09/11/18 07:00) Ketorolac Injection (Toradol Injection) (09/10/18 19:45) Rx-Hydrocodone/Apap 5-325 Mg (Rx-Vicodin (09/10/18 19:45) Vital Signs/I&O 09/10/18 19:30 Temp 97.5 Pulse 77 Resp 20 B/P (MAP) 97/75 (82) Pulse Ox 97 Blood Pressure Mean: 82 Departure Impression Primary Impression: Dental caries extending into dentine Additional Impression: Infected dental caries Disposition: HOME, SELF-CARE Condition: Stable/Unchanged Departure-Patient Inst. Decision time for Depature: 19:39 Referrals: NO,LOCAL PHYSICIAN (PCP/Family) Primary Care Physician Patient Instructions: Tooth Abscess (DC), Dental Pain (DC) Add. Discharge Instructions: Take medications as directed. Follow-up with your primary care provider within 1 week for recheck. Try to get your dental appointment moved up sooner to help alleviate the pain. Return back to the emergency room for worsening symptoms or concerns as needed. All discharge instructions reviewed with patient and/or family. Voiced understanding. Scripts Amoxicillin/Potassium Clav (Augmentin 875-125 Tablet) 1 Each Tablet 1 EACH PO BID PRN for 7 Days, #14 TAB Prov: VICKY BECKHAM 09/10/18 VICKY BECKHAM Sep 10, 2018 19:40
[2018-09-10] MEDS ORDERED: AUGMENTIN 875 MG TAB (AMOXICILLIN/CLAVULANATE) ONE (19:43)
[2018-09-10] MEDS ORDERED: RX-HYDROCODONE/APAP 5/325 MG #4 TAB PK PO PRN (19:45)
[2018-09-10] MEDS ORDERED: KETOROLAC 60 MG/2 ML VIAL IM ONE (19:45)
[2018-09-10 20:10] VITALS: BP 100/71
[2018-09-11] MEDS ORDERED: AUGMENTIN 875 MG TAB (AMOXICILLIN/CLAVULANATE) PO SCH (07:00)
== END 2018-09-10 20:10 | disposition home or self-care (01) ==
LOC: EDUNIT# 19:03 → ER 19:04
DX: K02.9 Dental caries, unspecified (principal); F17.210 Nicotine dependence, cigarettes, uncomplicated; Z88.1 Allergy status to other antibiotic agents; Z79.52 Long term (current) use of systemic steroids; Z98.890 Other specified postprocedural states; Z85.41 Personal history of malignant neoplasm of cervix uteri
CPT/HCPCS: 99284

== ENCOUNTER → 2020-03-17 | Outpatient (CLI) | payer SELFPAY ==
[~2020-03-17] MED LIST changes: +AMOX-358 PO
== END ==
LOC: FNS 17:29
PROVIDERS: ATTEND Emergency Medicine
DX: Z02.89 Encounter for other administrative examinations (principal)

== ENCOUNTER 2020-05-16 19:37 | Emergency (ER) | payer MEDICAID, OTHER ==
[~2020-05-16] VITALS: Ht 172.7 cm; Wt 58.9 kg
[2020-05-16] MEDS ORDERED: TETANUS,DIPTH,PERTUSS P/F (BOOSTRIX) 0.5 ML VIAL IM ONE (20:15)
[2020-05-16] MEDS ORDERED: L.E.T. SOLUTION 3 ML SYR TOP ONE (20:30)
--- NOTE | 2020-05-16 20:45 | NUR ---
Note rajiv in EDM - 05/16/20 at 2055 by [id number] Called captain for [facility]. Unable to take pt to [facility] due to other transfer at this time.
--- NOTE | 2020-05-16 20:53 | NUR ---
Junaid vance in EDM - 05/16/20 at 2055 by [id number] Called [facility] re transfer to [facility] [place] to call back.
[2020-05-16] MEDS ORDERED: LIDOCAINE 1% INJ 20 ML 20 ML VIAL INJ ONE (21:00)
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
[2020-05-16 22:00] VITALS: BP 130/86
== END 2020-05-16 21:51 | disposition home or self-care (01) ==
LOC: EDUNIT# 19:37 → ER 19:39
DX: S05.32XA Ocular laceration without prolapse or loss of intraocular tissue, left eye, initial encounter (principal); S80.12XA Contusion of left lower leg, initial encounter; S80.11XA Contusion of right lower leg, initial encounter; S40.011A Contusion of right shoulder, initial encounter; F17.210 Nicotine dependence, cigarettes, uncomplicated; Z23 Encounter for immunization; Z85.41 Personal history of malignant neoplasm of cervix uteri; Z88.1 Allergy status to other antibiotic agents; Z79.52 Long term (current) use of systemic steroids; Y04.2XXA Assault by strike against or bumped into by another person, initial encounter
CPT/HCPCS: 90715; 99284